=== PATIENT | female | born 1945 | race Caucasian/White ===

== ENCOUNTER → 2017-10-18 09:46 | Outpatient (CLI) | payer MEDICARE, SELFPAY ==
--- NOTE | 2017-10-18 09:51 | MM_ITS ---
MM Dig screening mamm BI w/CAD CAD Screening COMPARISON: Analog mammograms 06/27/2005 and digital mammograms 11/04/2015 INDICATION: There is a history of breast cancer in patient's 2 maternal great aunts. TECHNIQUE: Standard CC and MLO images were obtained. R2 CAD reviewed. FINDINGS: Moderate fiber glandular densities are seen in both breasts. Again noted are 3 benign-appearing nodular densities over upper outer quadrant right breast likely intramammary nodes. There are couple benign-appearing calcifications right breast. There is no suspicious lesion and there are no suspicious microcalcifications. IMPRESSION: Fibrofatty parenchyma with no suspicious lesion seen BI-RADS Category: 2 Benign Finding(s) RECOMMENDED FOLLOW-UP: 1YR - 1 YEAR FOLLOW-UP (A letter has been sent to the patient regarding results of the study.)
== END ==
PROVIDERS: Family Provider Internal Medicine Adolescent Medicine; PCP Internal Medicine Adolescent Medicine; Visit Provider Internal Medicine Adolescent Medicine
DX: Z12.31 Encounter for screening mammogram for malignant neoplasm of breast (principal)
CPT/HCPCS: 77067

== ENCOUNTER → 2018-01-08 10:24 | Outpatient (CLI) | payer MEDICARE, SELFPAY ==
[2018-01-08 11:01] LABS: Basophils # 0.1 K/mm3 (0-0.2); Eosinophils # 0.1 K/mm3 (0.0-0.4); Eosinophils % 1.8 % (0.1-12.0); Hematocrit 42.2 % (37.0-47.0); Lymphocytes # 1.2 K/mm3 (0.7-4.5); Lymphocytes % 15.8 K/mm3 (10-50); Mean Corpuscular HGB Conc 30.9 g/dL (31.8-35.4); Mean Corpuscular Hemoglobin 28.4 pg (27.0-31.2); Mean Platelet Volume 8.2 fl (7.4-10.4); Monocytes # 0.4 K/mm3 (0.1-1.0); Monocytes % 5.1 % (1.7-9.3); Neutrophils # 5.9 K/mm3 (1.8-7.8); Neutrophils % 76.1 % (37.0-80.0); Platelet Count 199 K/mm3 (142-424); Red Blood Count 4.59 M/mm3 (4.20-5.40); Red Cell Distribution Width 13.3 % (11.5-17.5); White Blood Count 7.7 K/mm3 (4.8-10.8)
[2018-01-08 11:40] LABS: Hemoglobin A1C 8.3 % (0.0-7.0)
[2018-01-08 11:57] LABS: Alanine Aminotransferase 28 U/L (12-78); Albumin/Globulin Ratio 1.3 (1.1-1.8); Alkaline Phosphatase 93 U/L (46-116); Aspartate Amino Transferase 17 U/L (15-37); Bilirubin,Total 0.5 mg/dL (0.2-1.0); Blood Urea Nitrogen 13 mg/dL (7-18); Calcium 9.3 mg/dL (8.5-10.1); Carbon Dioxide 30 mmol/L (21.0-32.0); Chloride 105 mmol/L (98-107); Chol/HDL Ratio 2.1 (1-3.5); Cholesterol 139 mg/dL (140-200); Creatinine,Serum 0.68 mg/dL (0.55-1.02); Estimated Glomerular Filt Rate 86 ml/min (>60); Free Thyroxine Index 5.8 ug/dL (5.93-13.13); GFR (African American) 104 ML/MIN (>60); Globulin 3.1 gm/dl (1.3-3.2); Glucose 184 mg/dL (74-106); HDL Cholesterol 67 mg/dL (29-89); LDL Cholesterol 61 mg/dL (0-130); Sodium 141 mmol/L (136-145); T4 (Thyroxine) 14.8 ug/dl (4.7-13.3); Thyroid Stimulating Hormone 0.09 uIU/ml (0.358-3.740); Total Protein,Serum 7.1 gm/dL (6.4-8.2); Triglycerides 53 mg/dL (30-200); Triiodothryronine (T3) Uptake 39 % (31-39); VLDL Cholesterol 11 mg/dL (0-40)
[2018-01-10 11:59] LABS: Vitamin B12 468 pg/mL (232-1245)
== END ==
PROVIDERS: Visit Provider Internal Medicine Adolescent Medicine
DX: E11.9 Type 2 diabetes mellitus without complications (principal); E03.9 Hypothyroidism, unspecified; G57.93 Unspecified mononeuropathy of bilateral lower limbs
CPT/HCPCS: 36415; 80053; 80061; 82607; 83036; 84436; 84443; 84479; 85025

== ENCOUNTER → 2018-07-21 14:56 | Outpatient (CLI) | payer MEDICARE, SELFPAY ==
--- NOTE | 2018-07-21 15:06 | XR_ITS ---
XR foot LT min 3V HISTORY: ITS.REASON: LEFT FOOT PAIN ORDERING PHYSICIAN: Eros Cohn MD PATIENT AGE: 72 years COMPARISON: None FINDINGS: No fracture or dislocation. No lytic or blastic change. There is normal mineralization.. The joint spaces are well-preserved. No significant degenerative/arthritic changes. No erosive changes evident. There is mild hypertrophic change along the dorsal distal aspect of the talus IMPRESSION: Negative, no acute finding
[2018-07-21 16:01] LABS: Basophils # 0.1 K/mm3 (0-0.2); Basophils % 1.1 % (0.1-2.0); Eosinophils # 0.1 K/mm3 (0.0-0.4); Eosinophils % 1.6 % (0.1-12.0); Hematocrit 45.1 % (37.0-47.0); Hemoglobin 14.1 g/dL (12.2-16.2); Lymphocytes # 1.5 K/mm3 (0.7-4.5); Lymphocytes % 20.7 % (10-50); Mean Corpuscular HGB Conc 31.3 g/dL (31.8-35.4); Mean Corpuscular Hemoglobin 29.5 pg (27.0-31.2); Monocytes # 0.4 K/mm3 (0.1-1.0); Monocytes % 5.9 % (1.7-9.3); Neutrophils # 5.1 K/mm3 (1.8-7.8); Neutrophils % 70.6 % (37.0-80.0); Platelet Count 199 K/mm3 (142-424); Red Cell Distribution Width 13.2 % (11.5-17.5); White Blood Count 7.2 K/mm3 (4.8-10.8)
[2018-07-21 16:14] LABS: Hemoglobin A1C 7.6 % (0.0-7.0)
[2018-07-21 16:55] LABS: Alanine Aminotransferase 49 U/L (12-78); Albumin Level 3.8 gm/dL (3.4-5.0); Albumin/Globulin Ratio 1.3 (1.1-1.8); Alkaline Phosphatase 92 U/L (46-116); Anion Gap 14.4 mEq/L (5-15); Aspartate Amino Transferase 37 U/L (15-37); Bilirubin,Total 0.6 mg/dL (0.2-1.0); Blood Urea Nitrogen 23 mg/dL (7-18); Carbon Dioxide 28 mmol/L (21.0-32.0); Chloride 104 mmol/L (98-107); Creatinine,Serum 0.81 mg/dL (0.55-1.02); Estimated Glomerular Filt Rate 70 ml/min (>60); Free Thyroxine Index 5.3 ug/dL (5.93-13.13); GFR (African American) 85 ML/MIN (>60); Glucose 157 mg/dL (74-106); Potassium 4.4 mmoL/L (3.5-5.1); Sodium 142 mmol/L (136-145); Thyroid Stimulating Hormone 0.28 uIU/ml (0.358-3.740); Total Protein,Serum 6.8 gm/dL (6.4-8.2); Triiodothryronine (T3) Uptake 38 % (31-39)
[2018-07-23 08:38] LABS: Vitamin B12 1136 pg/mL (232-1245); Vitamin D 25 Hydroxy 20.6 ng/mL (30.0-100.0)
== END ==
PROVIDERS: Visit Provider Internal Medicine Adolescent Medicine
DX: E11.9 Type 2 diabetes mellitus without complications (principal); M79.10 Myalgia, unspecified site; M79.672 Pain in left foot
CPT/HCPCS: 36415; 73630; 80053; 82607; 82652; 83036; 83735; 84436; 84443; 84479; 85025

== ENCOUNTER → 2020-01-07 14:52 | Outpatient (CLI) | payer MEDICARE, SELFPAY ==
[2020-01-07 15:10] LABS: Basophils # 0.1 K/mm3 (0-0.2); Basophils % 0.9 % (0.1-2.0); Eosinophils # 0.2 K/mm3 (0.0-0.4); Eosinophils % 1.8 % (0.1-12.0); Hematocrit 39.6 % (37.0-47.0); Lymphocytes # 2.4 K/mm3 (0.7-4.5); Lymphocytes % 23.3 % (10-50); Mean Corpuscular HGB Conc 32.9 g/dL (31.8-35.4); Mean Corpuscular Hemoglobin 31.1 pg (27.0-31.2); Mean Corpuscular Volume 94.7 fl (81-99); Mean Platelet Volume 7.8 fl (7.4-10.4); Monocytes # 0.4 K/mm3 (0.1-1.0); Monocytes % 3.4 % (1.7-9.3); Neutrophils # 7.3 K/mm3 (1.8-7.8); Neutrophils % 70.6 % (37.0-80.0); Platelet Count 540 K/mm3 (142-424); Red Blood Count 4.18 M/mm3 (4.20-5.40); Red Cell Distribution Width 13.3 % (11.5-17.5); White Blood Count 10.3 K/mm3 (4.8-10.8)
[2020-01-07 16:12] LABS: Chloride 101 mmol/L (98-107)
[2020-01-07 16:13] LABS: Potassium 4.4 mmoL/L (3.5-5.1); Sodium 139 mmol/L (136-145)
[2020-01-07 16:15] LABS: Alanine Aminotransferase 17 U/L (12-78); Albumin Level 3.5 g/dl (3.5-5.0); Albumin/Globulin Ratio 1.3 (1.1-1.8); Alkaline Phosphatase 69 U/L (38-126); Anion Gap 11.4 mEq/L (5-15); Aspartate Amino Transferase 25 U/L (14-36); Bilirubin,Total 0.4 mg/dl (0.2-1.3); Blood Urea Nitrogen 14 mg/dl (7-17); Carbon Dioxide 31 mmol/L (22.0-30.0); Estimated Glomerular Filt Rate 82 ml/min (>60); GFR (African American) 100 ML/MIN (>60); Globulin 2.8 g/dL (1.3-3.2); Total Protein,Serum 6.3 g/dl (6.3-8.2)
[2020-01-07 16:16] LABS: Calcium 8.8 mg/dl (8.4-10.2); Chol/HDL Ratio 2.5 (1-3.5); Cholesterol 111 mg/dl (140-200); Glucose 123 mg/dl (74-100); HDL Cholesterol 45 mg/dl (40-60); Triglycerides 112 mg/dl (30-150); VLDL Cholesterol 22 mg/dL (0-40)
[2020-01-07 16:28] LABS: Direct LDL Cholesterol 45.42 mg/dL (100-129)
[2020-01-07 17:28] LABS: Hemoglobin A1C 7.4 % (4.0-6.0)
== END ==
PROVIDERS: Visit Provider Internal Medicine Adolescent Medicine
DX: I10 Essential (primary) hypertension (principal); E78.5 Hyperlipidemia, unspecified; E11.9 Type 2 diabetes mellitus without complications; Z79.4 Long term (current) use of insulin
CPT/HCPCS: 36415; 80053; 80061; 83036; 84443; 85025

== ENCOUNTER → 2020-01-19 07:43 | Outpatient (CLI) | payer MEDICARE, SELFPAY ==
--- NOTE | 2020-01-19 07:50 | US_ITS ---
PROCEDURE: US ABDOMEN LIMITED Technique: Ultrasound evaluation of the right upper quadrant was performed with real-time static grayscale and color Doppler imaging technique. CLINICAL INDICATION: RUQ PAIN COMPARISON: ABD US ABD(COMPLETE-MULTI ORGANS from 11/05/2012 FINDINGS: PANCREAS: Unremarkable. No obvious mass or abnormal fluid collection. No ductal dilatation LIVER: No focal liver lesions demonstrated. Homogeneous echogenicity. No intrahepatic biliary ductal dilatation evident. There is appropriate direction of blood flow within a non dilated portal vein RIGHT KIDNEY: Unremarkable. Normal size and echogenicity. No hydronephrosis GALLBLADDER: No gallstones, gallbladder wall thickening(1.8 mm), pericholecystic fluid, or biliary dilatation. Minimal intraluminal sludge is seen. IMPRESSION: Unremarkable limited abdominal ultrasound as detailed above disc Dictated by: Minda Rincon 01/19/2020 08:35 Electronically signed by Minda Rincon in [place] 01/19/2020 08:35
== END ==
PROVIDERS: PCP Internal Medicine Adolescent Medicine; Visit Provider Internal Medicine Adolescent Medicine
DX: R10.11 Right upper quadrant pain (principal)
CPT/HCPCS: 76705

== ENCOUNTER → 2020-02-02 10:19 | Outpatient (CLI) | payer MEDICARE, SELFPAY ==
--- NOTE | 2020-02-02 10:25 | NM_ITS ---
PROCEDURE: NM HEPATOBILIARY W PHARM CLINICAL INDICATION: RUQ PAIN COMPARISON: US US ABDOMEN LIMITED from 01/19/2020 TECHNIQUE: DOSE: 8.08 mCi technetium Choletec and 1.5 mcg of CCK. No pain reported with CCK infusion FINDINGS: Homogeneous activity is present within the hepatic parenchyma. Activity is present in the gallbladder by 9 minutes. Activity is present in the small bowel by 40 minutes. The gallbladder ejection fraction is calculated to be 83 percent. CCK-The patient did not report pain or other symptoms during CCK infusion. IMPRESSION: Unremarkable hepatobiliary scan with normal gallbladder ejection fraction. Dictated b Antelmo Serrano MD 02/02/2020 13:13 Antelmo Serrano MD in [facility] 02/02/2020 13:13
--- NOTE | 2020-02-02 10:39 | HMH.ITSHM ---
Current Home Medications as stated by this patient Lizzie Peres or investment representative. []INSULIN LEVOTHYROXINE HCTZ VITAMINS
== END ==
PROVIDERS: PCP Internal Medicine Adolescent Medicine; Visit Provider Internal Medicine Adolescent Medicine
DX: R10.11 Right upper quadrant pain (principal)
CPT/HCPCS: 78227; A9537; J2805

== ENCOUNTER → 2020-12-15 09:14 | Outpatient (CLI) | payer MEDICARE, SELFPAY ==
[2020-12-15 09:58] LABS: Basophils # 0.1 K/mm3 (0-0.2); Basophils % 1.2 % (0.1-2.0); Eosinophils # 0.3 K/mm3 (0.0-0.4); Eosinophils % 3.3 % (0.1-12.0); Hematocrit 40.7 % (37.0-47.0); Hemoglobin 13.7 g/dL (12.2-16.2); Lymphocytes # 2.5 K/mm3 (0.7-4.5); Lymphocytes % 32.6 % (10-50); Mean Corpuscular HGB Conc 33.5 g/dL (31.8-35.4); Mean Corpuscular Volume 89.4 fl (81-99); Mean Platelet Volume 8.5 fl (7.4-10.4); Monocytes # 0.4 K/mm3 (0.1-1.0); Monocytes % 4.9 % (1.7-9.3); Neutrophils # 4.4 K/mm3 (1.8-7.8); Neutrophils % 57.9 % (37.0-80.0); Platelet Count 203 K/mm3 (142-424); Red Blood Count 4.55 M/mm3 (4.20-5.40); Red Cell Distribution Width 13.8 % (11.5-17.5); White Blood Count 7.6 K/mm3 (4.8-10.8)
[2020-12-15 10:17] LABS: Alanine Aminotransferase 20 U/L (12-78); Albumin/Globulin Ratio 1.5 (1.1-1.8); Alkaline Phosphatase 74 U/L (38-126); Anion Gap 10.2 mEq/L (5-15); Aspartate Amino Transferase 27 U/L (14-36); Bilirubin,Total 0.6 mg/dl (0.2-1.3); Blood Urea Nitrogen 21 mg/dl (7-17); Calcium 9.2 mg/dl (8.4-10.2); Carbon Dioxide 32 mmol/L (22.0-30.0); Chloride 101 mmol/L (98-107); Chol/HDL Ratio 2.3 (1-3.5); Cholesterol 158 mg/dl (140-200); Estimated Glomerular Filt Rate 82 ml/min (>60); GFR (African American) 99 ML/MIN (>60); Globulin 2.6 g/dL (1.3-3.2); Glucose 73 mg/dl (74-100); HDL Cholesterol 70 mg/dl (40-60); Potassium 4.2 mmoL/L (3.5-5.1); Sodium 139 mmol/L (136-145); Total Protein,Serum 6.6 g/dl (6.3-8.2); Triglycerides 72 mg/dl (30-150); VLDL Cholesterol 14 mg/dL (0-40)
[2020-12-15 10:28] LABS: Direct LDL Cholesterol 56.47 mg/dL (100-129)
[2020-12-15 10:34] LABS: Free Thyroxine Index 3.3 ug/dL (5.93-13.13); T4 (Thyroxine) 9.9 ug/dl (5.53-11.0); Triiodothryronine (T3) Uptake 33 % (23.5-40.5)
[2020-12-15 10:48] LABS: Thyroid Stimulating Hormone 2.95 uIU/mL (0.465-4.68)
[2020-12-15 11:43] LABS: Hemoglobin A1C 7.9 % (4.0-6.0)
== END ==
PROVIDERS: Visit Provider Internal Medicine Adolescent Medicine
DX: E11.9 Type 2 diabetes mellitus without complications (principal); E03.9 Hypothyroidism, unspecified; Z79.4 Long term (current) use of insulin
CPT/HCPCS: 36415; 80053; 80061; 83036; 84436; 84443; 84479; 85025

== ENCOUNTER → 2020-12-27 09:40 | Outpatient (CLI) | payer MEDICARE, SELFPAY ==
--- NOTE | 2020-12-27 09:44 | MR_ITS ---
PROCEDURE INFORMATION: Exam: MR Left Upper Extremity Joint Without Contrast; Shoulder Exam date and time: 12/27/2020 9:44 AM Age: 75 years old Clinical indication: Pain; Shoulder; Left; Additional info: Rotator cuff syndrome. Shoulder pain [id number]. Lifted object and has had pain since. Limited rom. Prior MR 10-12-14 TECHNIQUE: Imaging protocol: MR of the Left upper extremity without contrast. Exam focused on the shoulder. COMPARISON: UEAJW/OLT MRI-UP EXT ANY JNT W/O-LT 10/12/2014 11:38 AM (report not available) FINDINGS: Bones and cartilage: Benign subchondral cysts involve the humeral head. The undersurface of the acromion has a normal curvature, consistent with a type II acromion. There is no acute fracture or dislocation. No aggressive bone lesions are present. Joint spaces: There is mild primary osteoarthritis of the acromioclavicular joint. Glenoid labrum: Unremarkable. No evidence of tear. Supraspinatus tendon: Intermediate-grade partial-thickness tearing involves both the articular and bursal surfaces of the distal supraspinatus tendon resulting in approximately 50% loss of tendon diameter involving approximately 8 mm of the tendon (series 9/images 9-10). Infraspinatus tendon: Mild tendinosis involves the infraspinatus tendon. Subscapularis tendon: Mild tendinosis involves the subscapularis tendon. Teres minor tendon: No tear or significant tendinosis involves the teres minor tendon. Tendon of biceps brachii: Moderate tendinosis involves the intra-articular portion of the long head of the biceps tendon. Glenohumeral ligaments: Unremarkable. Muscles: The rotator cuff musculature demonstrates no significant edema or atrophy. Soft tissues: Unremarkable. IMPRESSION: 1. Intermediate-grade partial-thickness tearing involving approximately 8 mm of the distal supraspinatus tendon articular and bursal surfaces that results in approximately 50% loss of tendon diameter. 2. Moderate tendinosis of the long head of the biceps tendon. 3. 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
== END ==
PROVIDERS: PCP Internal Medicine Adolescent Medicine; Visit Provider Internal Medicine Adolescent Medicine
DX: M75.102 Unspecified rotator cuff tear or rupture of left shoulder, not specified as traumatic (principal)
CPT/HCPCS: 73221

== ENCOUNTER → 2021-01-03 14:22 | Outpatient (CLI) | payer MEDICARE, SELFPAY | PROVIDERS: Visit Provider Surgery | DX: Z01.812 Encounter for preprocedural laboratory examination (principal); Z11.52 Encounter for screening for COVID-19; Z13.810 Encounter for screening for upper gastrointestinal disorder; R10.10 Upper abdominal pain, unspecified | CPT/HCPCS: U0003 ==

== ENCOUNTER 2021-01-04 07:19 | Day surgery (SDC) | payer MEDICARE, SELFPAY ==
[2021-01-02 09:43] VITALS: BMI 29.2
[2021-01-04] VITALS (8 sets, daily range): BP systolic 140–175; BP diastolic 55–92; PULSE 74–97; RESP 16–18; TEMP 36.2–36.4; O2SAT 96–99
--- NOTE | 2021-01-04 08:33 | P.PN_ITS ---
[facility] Anesthesia Checklist - Patient Identification Patient Identification: Arm Band - Structural Data Admitted From: Home Planned Operative Procedure/s: egd Consent for Planned Operative Procedure(s) Verified: Yes Verified Documents: Surgical Consent, History and Physical - NPO Status Verified Time NPO: 00:00 - Additional verifications Anesthesia Reactions: No - Airway Assessment C-Spine Mobility Assessed: Yes (mp2) TMJ Mobility Assessed: Yes Dentition: Good Dentition - Neurological Assessment Level of Consciousness: Awake, Alert - Anesthesia Plan Anesthesia Risk discussed: Yes Anesthesia Plan: Verified ASA Class: III Anesthesia Type: MAC [facility] History I have reviewed the patient's past medical history: Yes Medical History: Reports:: Cerebrovascular Accident (2013), Diabetes Mellitus Type 2, Hypertension Denies:: Cancer, Diabetes Mellitus Type 1, Internal Pacemaker, Lung Disease, MRSA, Seizures *Have you ever received a pneumonia vaccine?: No *Have you received a flu vaccine this season?: No Other Medical History: Reports: Thyroid Disease Anesthesia experience/problems:: nac Laterality Cases: Right: Arthroscopy Knee Other Surgeries: Yes: Colonoscopy, Hernia Repair, Other. No: Pacemaker Amputation: No - *Social History Smoking Status: Never smoker Alcohol Intake: never Alcohol Intake Frequency:: other Substance Use Type: denies use *Occupational Status:: retired Housing: house *Travel in the last 8 weeks: None Family Hx:: Unable to obtain
[2021-01-04 08:50] LABS: POC Glucose,Bedside 94 (70-110)
--- NOTE | 2021-01-04 08:57 | P.PCN_ITS ---
- Procedure: Date: 01/04/21 Patient Date of :: 1945 Procedure Performed:: Esophagogastroduodenoscopy with biopsies and dilatation Indications:: Patient is a 75-year-old diabetic female referred by Dr. Eros Cohn for upper endoscopy. She has a prior history of stroke. Patient states that her symptoms began about 2 years ago. She had previously been diagnosed with acid reflux. She states that 2 years ago she had purchased some items at [employer] in cluding a large flower pot and she, when lifting, felt a sharp pain in the left upper quadrant radiating around her left back and into her left shoulder. She subsequently has had ongoing occasional symptoms of left upper quadrant pain. She states that this occurs essentially with anything she eats. She also states that when she bends over she feels the need to vomit. She also has significant belching. She watches her diet significantly and states that she eats a lot of yogurt, raw vegetables, and refrains from eating meat and spicy foods. She does take fiber supplementation and organic vitamins. She has some associated indigestion type symptoms. She underwent gallbladder work-up last summer including ultrasound and HIDA scan which were unremarkable. She did undergo colonoscopy approximately [address] Yan. Performing Provider:: Dariusz Powell MD Referring Provider:: Eros Cohn MD Sedation:: MAC sedation Procedure:: Patient was positioned in lateral decubitus position. Adequate intravenous sedation was achieved with anesthesia titration of propofol. Olympus endoscope was inserted via the oropharynx and advanced into the esophagus. Overall esophagus appeared unremarkable. However, the gastroesophageal junction, which was encountered actually at approximately 30 cm from the incisors, there was noted to be evidence of possible Schatzki's ring in focal reflux esophagitis. Stomach was cannulated and insufflated. She had a rather large hiatal hernia. The main body of the stomach was actually cannulated at approximately 40 cm from the incisors. Overall gastric mucosa appeared relatively unremarkable. Gastric mucosal biopsies obtained for CLOtest for H. pylori. Pylorus was traversed. Duodenum appeared unremarkable. Endoscope was withdrawn into the distal esophagus. Several biopsies were obtained. The area of esophagitis and Schatzk i's ring was dilated sequentially using the pneumatic dilator from 18, 19, 20 mm luminal diameter. Stomach was desufflated and the endoscope was then withdrawn. Findings:: Very large hiatal hernia Focal gastroesophageal esophagitis and Schatzki's ring Recommendations:: Follow-up on H. pylori status and biopsies. May be require referral for co nsideration of hiatal hernia repair if symptoms persist Complications:: None immediately apparent Estimated blood obtained (mL): 2
[2021-01-04 10:01] LABS: POC Glucose,Bedside 106 (70-110)
== END 2021-01-04 10:10 | disposition home or self-care (01) ==
LOC: OUTP 07:21
PROVIDERS: PCP Internal Medicine Adolescent Medicine; Visit Provider Surgery
PROC: 0DJ08ZZ Inspection of Upper Intestinal Tract, Via Natural or Artificial Opening Endoscopic (ICD-10-PCS; CPT 43235; principal; 2021-01-04 08:30)
DX: K44.9 Diaphragmatic hernia without obstruction or gangrene (principal); K22.2 Esophageal obstruction; K20.80 Other esophagitis without bleeding; E11.9 Type 2 diabetes mellitus without complications; I10 Essential (primary) hypertension; Z86.73 Personal history of transient ischemic attack (TIA), and cerebral infarction without residual deficits; E07.9 Disorder of thyroid, unspecified; Z88.0 Allergy status to penicillin; Z88.8 Allergy status to other drugs, medicaments and biological substances; Z79.4 Long term (current) use of insulin; Z79.899 Other long term (current) drug therapy
CPT/HCPCS: 43239; 43249; 82962; 87339; 88305; 88312; C1726

== ENCOUNTER → 2021-01-27 11:19 | Outpatient (CLI) | payer MEDICARE, SELFPAY ==
--- NOTE | 2021-01-27 11:28 | XR_ITS ---
PROCEDURE: XR SHOULDER LT MIN 2V CLINICAL INDICATION: LT shoulder pain COMPARISON: MR MR SHOULDER LT WO CON from 12/27/2020 FINDINGS: No fracture or dislocation. No lytic or blastic change. There is normal mineralization. There are mild osteoarthritic changes of the glenohumeral joint and there is mild subacromial stenosis Other findings:The humeral head is slightly high-riding. IMPRESSION: Mild osteoarthritis of the glenohumeral joint with mild subacromial stenosis Dictated by: Antelmo Serrano MD 01/27/2021 11:49 Antelmo Serrano MD in [facility] 01/27/2021 11:49
== END ==
PROVIDERS: PCP Internal Medicine Adolescent Medicine; Visit Provider Orthopaedic Surgery
DX: M25.512 Pain in left shoulder (principal)
CPT/HCPCS: 73030

== ENCOUNTER 2021-03-01 08:00 | Outpatient (RCR) | payer MEDICARE, SELFPAY ==
--- NOTE | 2021-01-30 09:13 | HMH.OTOPEV ---
OT Inpatient Evaluation Rehab OT Outpatient Eval Start: 01/30/21 08:46 Freq: Status: Active Protocol: Document 01/30/21 08:47 CHANDANARICARDO (Rec: 01/30/21 09:09 YAMILANARESH [id number]) Electronically Signed By Caitlin Dietrich, OT 01/30/21 08:47 Outpatient Therapy Subjective History Subjective History 75 year old female referred to skilled OP OT services for left shoulder pain. X-ray on : Mild osteoarthritis of the glenohumeral joint with mild subacromial stenosis. MRI on 01/30/21. 1. Intermediate- grade partial-thickness tearing involving approximately 8 mm of the distal supraspinatus tendon articular and bursal surfaces that results in approximately 50% loss of tendon diameter. 2. Moderate tendinosis of the long head of the biceps tendon . 3. 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 She states about six months ago she picked up a five gallon bucket of kerosene and felt something in her left shoulder pull . She states it continued to bother her so she followed up with her primary care physician, Dr Cohn who ordered an MRI and told her to follow up with orthopaedics. She states she has no pain at rest but with certain movements, over head reaching, lifting and gripping she rates her pain a 5 out of 10. She states she has had an intra-articular steroid injection in 2015 by a physician in [place] and had received some relief from it. She states occasional neck pain. She states she has some tinging in her fingers that comes and goes. She states that she has had a stroke in t
== END 2021-03-01 08:05 | disposition home or self-care (01) ==
LOC: OT 08:00
PROVIDERS: PCP Internal Medicine Adolescent Medicine; Visit Provider Orthopaedic Surgery
DX: M25.512 Pain in left shoulder (principal)
CPT/HCPCS: 97014; 97035; 97110; 97140; 97164; 97165; 97530; G0283

== ENCOUNTER → 2021-07-26 08:22 | Outpatient (CLI) | payer MEDICARE, SELFPAY ==
--- NOTE | 2021-07-26 08:28 | XR_ITS ---
FINAL REPORT TECHNIQUE: Bone densitometry calculations of the lumbar spine and left hip were obtained. CLINICAL HISTORY: . FINDINGS: Using L1-4, the bone mineral density of the spine is 1.106 g/cm2, corresponding to T-score of 0.5. Using the left hip, the bone mineral density of the femoral neck is 0.724 g/cm2, corresponding to a T-score of -1.8. NOTE: T-score: Standard deviation compared with peak bone mass of young adult mean. *Following the recommendations of the International Society of Bone Densitometry, classification of hip BMD is based on the lower of two T-scores; total hip or femoral neck. IMPRESSION: Normal bone mineralization of the lumbar spine. This may be falsely elevated secondary to degenerative changes. Diminished bone mineralization of the left hip consistent with osteopenia. FRAX major osteoporotic fracture risk 11 %. Reviewed, Interpreted and Dictated by Dariusz Ibarra III, MD Transcribed by Michelle Chandler Authenticated by Dariusz Ibarra III, MD on 07/26/2021 10:30:54 AM [facility]
--- NOTE | 2021-07-26 08:28 | MM_ITS ---
PROCEDURE INFORMATION: Exam: MG Bilateral Screening 3D Mammography Exam date and time: 07/26/2021 8:28 AM Age: 75 years old Clinical indication: Screening mammogram TECHNIQUE: Imaging protocol: Bilateral Screening tomosynthesis and 2D mammography including computer-aided detection (CAD) when performed. COMPARISON: 1. MG SCBI MM Dig screening mamm BI w/CAD 10/18/2017 10:04 AM 2. MG DMSB DIG MAMM-SCREEN ALVARO 11/04/2015 4:34 PM FINDINGS: MAMMOGRAPHY: Breast composition: The breast tissue is heterogeneously dense, which may obscure small masses. Mass: None. Architectural distortion: No new or suspicious architectural distortion. Calcifications: No new or suspicious calcifications are present Asymmetric density: No new or suspicious asymmetric density is present Skin thickening: None. Axillary adenopathy: None. IMPRESSION: No mammographic evidence of malignancy. Recommend annual screening mammography unless otherwise clinically indicated. ASSESSMENT: BI-RADS category 1: Negative
== END ==
PROVIDERS: PCP Internal Medicine Adolescent Medicine; Visit Provider Internal Medicine Adolescent Medicine
DX: Z12.31 Encounter for screening mammogram for malignant neoplasm of breast (principal); Z13.820 Encounter for screening for osteoporosis; Z78.0 Asymptomatic menopausal state
CPT/HCPCS: 77063; 77067; 77080

== ENCOUNTER 2021-09-19 16:24 | Emergency (ER) | payer MEDICARE, SELFPAY ==
[2021-09-19 16:49] VITALS: PULSE 95; RESP 16; TEMP 36.6; O2SAT 99; BMI 32.5
--- NOTE | 2021-09-19 17:39 | XR_ITS ---
PROCEDURE INFORMATION: Exam: XR Left Elbow Exam date and time: 09/19/2021 5:59 PM Age: 75 years old Clinical indication: Pain; Elbow; Left; Additional info: Left elbow pain after fall on Saturday night , bruising and swelling noted to elbow , best images possible TECHNIQUE: Imaging protocol: XR Left elbow. Views: 3 or more views. COMPARISON: UEAJW/OLT MRI-UP EXT ANY JNT W/O-LT 10/12/2014 11:38 AM FINDINGS: Bones/joints: Displaced fracture of the olecranon process with 1.2 cm displacement of fracture fragments. No other acutely displaced fractures are appreciated. No dislocation. Small to moderate elbow joint effusion. Soft tissues: There is soft tissue swelling. IMPRESSION: Displaced fracture of the olecranon process.
[2021-09-19 17:55] VITALS: BP 146/92; PULSE 95; RESP 16; TEMP 36.6; O2SAT 99; BMI 32.3
--- NOTE | 2021-09-19 18:40 | HMH.EDUTC ---
[facility] Disposition Clinical Impression: Elbow fracture, left Qualifiers: Encounter type: initial encounter Fracture type: closed Qualified Code(s): S42.402A - Unspecified fracture of lower end of left humerus, initial encounter for closed fracture Disposition: Home, Self-Care Condition on Discharge: Good Instructions: Acetaminophen (Alternative Therapy), How To Perform RICE (Rest, Ice, Compress, Elevate), Ibuprofen Additional Instructions: *RICE, Rest the extremity, Ice 15-20 minutes 3-4 times daily, Compress- wear the sundeep wrap as discussed as much as possible to help reduce swelling and pain, Elevate the extremity when at rest *Sundeep wrap/long arm splint is for support and help control swelling, *Elevate when resting and keep elevated to help with swelling and bruising *Ibuprofen 600 every 6-8 hours as needed for pain an inflammation. If need something more can take Tylenol in between doses of Ibuprofen to help Immediately follow up with your family doctor for new or worsening of symptoms, or no noticeable improvement over the next 3-5 days NO FOOD OR DRINK AFTER MIDNIGHT TONIGHT 09/19/21 THE ORTHOPEDIC OFFICE WILL CONTACT YOU WITH TIME IN THE MORNING IF YOU HAVE NOT HEARD FROM THEM THEN YOU MAY CALL THEM Referrals: Eros Cohn MD [Primary Care Provider] - As needed Anand Pizarro JR, MD [Physician] - 09/20/21 (Nothing to eat or drink after midnight, the office will call you with what time to be here if you have not heard from them call ) Time of Disposition: 18:51 Medical Decision Making - Charles Inquiry Pt receiving controlled substance: No Charles was queried for this patient: No Vital Signs: 09/19/21 16:49 09/19/21 17:55 Temperature 97.9 F 97.9 F Temperature Source Oral Oral Pulse Rate [Left Radial] 95 H 95 H Respiratory Rate 16 16 Blood Pressure [Right Arm] 146/92 H Blood Pressure Mean [Right Arm] 110 02 Sat by Pulse Oximetry 99 99 Oxygen Delivery Method Nasal Cannula - Radiology Data #1 Image(s): Elbow Image Reviewed: Yes I have reviewed radiologist's interpretation IMPRESSION: Displaced fracture of the olecranon process. - Physician Consults Physician Consulted: Dr Pizarro Time: 18:25 Reason -: Orthopedic Eval/Care Comment/Response: spoke with Dr Pizarro and he viewed xray and agreed Advised to place her in long arm splint, NPO after Midnight and he would contact Dr Dobbs and possibly put her on in the morning the office will call her with a time [facility] HPI - General Stated complaint: 09/15@1830@home injured L elbow Time Seen by Provider: 09/19/21 18:00 Mode of Arrival: Ambulatory Source of Information: Patient Limitations: No Limitations Description of Symptoms (Recalled from Triage Doc. by RN): pt c/o L elbow pain from a fall four days ago. HEENT Symptoms (Recalled from RN notes): No Resp Symptoms (Recalled from RN notes): No Skin Symptoms (Recalled from RN notes): No MS Symptoms (Recalled from RN notes): Yes Functional Status (Recalled from RN notes): wnl - History of Present Illness Provider Complaint: Patient states that she fell in her driveway on Saturday States that she has been having pain, swelling and bruising ever since in her left arm States that pain is worse in her elbow area and hurts when she touches it Statse that tonight she was still hurting and bruising was worse so she came in - Related Data Home Medications Medication Instructions Recorded Confirmed insulin aspart U-100 100 unit/mL 3 unit SUB-Q BID 01/07/18 04/21/21 (3 mL) subcutaneous pen insulin detemir U-100 100 unit/mL 5 unit SUB-Q QHS 01/07/18 04/21/21 (3 mL) subcutaneous pen hydrochlorothiazide 25 mg tablet 25 mg PO DAILY tab 12/19/20 04/21/21 levothyroxine 125 mcg tablet 125 mcg PO DAILY tab 12/19/20 04/21/21 losartan 100 mg tablet 100 mg PO DAILY tab 12/19/20 04/21/21 Previous Rx's Medication Instructions Recorded esomeprazole magnesium 40 mg 40 mg PO DAILY #30 cap 01/27/21 capsule,d
[2021-09-19 19:31] VITALS: BP 146/92; PULSE 95; RESP 16; TEMP 36.6
== END 2021-09-19 19:32 | disposition home or self-care (01) ==
LOC: ER 16:51 → UTC 16:58
PROVIDERS: Emergency Provider Nurse Practitioner; PCP Internal Medicine Adolescent Medicine
DX: S52.022A Displaced fracture of olecranon process without intraarticular extension of left ulna, initial encounter for closed fracture (principal); W01.0XXA Fall on same level from slipping, tripping and stumbling without subsequent striking against object, initial encounter; Y92.014 Private driveway to single-family (private) house as the place of occurrence of the external cause; E11.9 Type 2 diabetes mellitus without complications; I10 Essential (primary) hypertension; Z88.0 Allergy status to penicillin
CPT/HCPCS: 29105; 73080; 99212; G0463

== ENCOUNTER → 2021-09-20 10:23 | Outpatient (CLI) | payer MEDICARE, SELFPAY ==
--- NOTE | 2021-09-20 10:31 | CT_ITS ---
FINAL REPORT CLINICAL HISTORY: left elbow fracture pt unable to place arm behind her or lay prone with arm out in front of her, best images possible prior xrays of left elbow on 09/19/21 COMPARISON: Axial images through the left elbow was obtained by computed tomography. Sagittal coronal reformatted images were obtained and reviewed. Three-D reformatted images were also obtained and reviewed. This study was performed with techniques to keep radiation doses as low as reasonably achievable (ALARA). Individualized dose reduction techniques using automated exposure control or adjustment of mA and/or kV according to the patient's size were employed. FINDINGS: There is a comminuted fracture of the olecranon. Fracture lines extend to the joint. There is up to 4 mm of distraction of the fracture fragments. No other fracture or dislocation is identified. There is a small joint effusion or hemarthrosis. IMPRESSION: Comminuted fracture of the olecranon. Reviewed, Interpreted and Dictated by Dariusz Ibarra III, MD Transcribed by Daniela Soto Authenticated by Dariusz Ibarra III, MD on 09/20/2021 01:20:53 PM [facility]
--- NOTE | 2021-09-20 10:32 | XR_ITS ---
FINAL REPORT CLINICAL HISTORY: hypertension FINDINGS: Two views of the chest were obtained. The heart size and pulmonary vascularity are within normal limits. The mediastinum is normal. There is mild atelectasis or scarring in the right lung base. There is no pneumothorax. The bony thorax is intact. There is a large hiatal hernia. IMPRESSION: No active cardiopulmonary disease. Reviewed, Interpreted and Dictated by Dariusz Ibarra III, MD Transcribed by Michelle Chandler Authenticated by Dariusz Ibarra III, MD on 09/20/2021 11:27:56 AM [facility]
[2021-09-20 11:51] LABS: Basophils # 0.1 K/mm3 (0-0.2); Basophils % 1.2 % (0.1-2.0); Eosinophils # 0.1 K/mm3 (0.0-0.4); Eosinophils % 1.6 % (0.1-12.0); Hematocrit 38.5 % (37.0-47.0); Hemoglobin 12.7 g/dL (12.2-16.2); Lymphocytes # 1.7 K/mm3 (0.7-4.5); Lymphocytes % 21.3 % (10-50); Mean Corpuscular HGB Conc 33.1 g/dL (31.8-35.4); Mean Corpuscular Hemoglobin 30.4 pg (27.0-31.2); Mean Platelet Volume 9.7 fl (7.4-10.4); Monocytes # 0.4 K/mm3 (0.1-1.0); Monocytes % 5.1 % (1.7-9.3); Neutrophils # 5.6 K/mm3 (1.8-7.8); Neutrophils % 70.7 % (37.0-80.0); Platelet Count 210 K/mm3 (142-424); Red Blood Count 4.18 M/mm3 (4.20-5.40)
[2021-09-20 12:31] LABS: Hemoglobin A1C 7.9 % (4.0-6.0)
[2021-09-20 13:12] LABS: Alanine Aminotransferase 21 U/L (12-78); Albumin Level 4.1 g/dl (3.5-5.0); Albumin/Globulin Ratio 1.7 (1.1-1.8); Alkaline Phosphatase 84 U/L (38-126); Aspartate Amino Transferase 28 U/L (14-36); Bilirubin,Total 0.7 mg/dl (0.2-1.3); Blood Urea Nitrogen 18 mg/dl (7-17); Carbon Dioxide 30 mmol/L (22.0-30.0); Chloride 101 mmol/L (98-107); Estimated Glomerular Filt Rate 98 ml/min (>60); GFR (African American) 119 ML/MIN (>60); Globulin 2.4 g/dL (1.3-3.2); Glucose 125 mg/dl (74-100); Sodium 137 mmol/L (136-145); Total Protein,Serum 6.5 g/dl (6.3-8.2)
== END ==
PROVIDERS: PCP Internal Medicine Adolescent Medicine; Visit Provider Physician Assistant Surgical
DX: S42.402A Unspecified fracture of lower end of left humerus, initial encounter for closed fracture (principal); E11.9 Type 2 diabetes mellitus without complications; Z79.4 Long term (current) use of insulin
CPT/HCPCS: 36415; 71046; 73200; 80053; 83036; 85025

== ENCOUNTER 2021-09-24 13:02 | Emergency (ER) | payer MEDICARE, SELFPAY ==
[2021-09-24 13:30] VITALS: RESP 18; O2SAT 98; BMI 38.2
[2021-09-24 13:34] VITALS: BP 0/0; PULSE 0; RESP 0; TEMP -17.7; TEMP 0
== END 2021-09-24 13:36 | disposition left against medical advice (07) ==
LOC: UTC 13:04
PROVIDERS: Emergency Provider Nurse Practitioner Family; PCP Internal Medicine Adolescent Medicine
DX: Z03.89 Encounter for observation for other suspected diseases and conditions ruled out (principal); Z53.21 Procedure and treatment not carried out due to patient leaving prior to being seen by health care provider; Z20.822 Contact with and (suspected) exposure to COVID-19; Z79.4 Long term (current) use of insulin; E66.9 Obesity, unspecified; Z79.899 Other long term (current) drug therapy; Z88.8 Allergy status to other drugs, medicaments and biological substances
CPT/HCPCS: C9803; U0003; U0005

== ENCOUNTER 2021-09-26 08:50 | Day surgery (SDC) | payer MEDICARE, SELFPAY ==
[2021-09-25 11:16] VITALS: BMI 32.5
[2021-09-26] VITALS (11 sets, daily range): BP systolic 135–169; BP diastolic 80–91; PULSE 60–93; RESP 16–18; TEMP 36.2–43; O2SAT 94–99
--- NOTE | 2021-09-26 11:54 | SUR.PREOP ---
1130- assisted patient to BR patient urinated. Assisted back to stretcher made comfortable with extra pillow under left elbow and rails up. Family at BS. Denies any needs
--- NOTE | 2021-09-26 12:06 | HMH.ORTHHP ---
*Admission Date: 09/26/21 *Reason for consult:: Left olecranon fracture *History of present illness: 75-year-old female fell last week, complained of left elbow pain. She was seen in the emergency department where radiographs demonstrated a left olecranon fracture. She was placed in a long-arm splint, seen in clinic by Dr. Cabrera and Dilia Santana PA-C. Her skin was examined and her long-arm splint was replaced. I had a discussion with her regarding further management. Given her overall functional status and significant displacement of the intra-articular fracture, open reduction internal fixation was recommended. [facility] History Medical History: Reports:: Cerebrovascular Accident, Diabetes Mellitus Type 2, Hypertension Denies:: Cancer, Diabetes Mellitus Type 1, Internal Pacemaker, Lung Disease, MRSA, Seizures *Have you ever received a pneumonia vaccine?: Yes *Have you received a flu vaccine this season?: Yes Other Medical History: Reports: Thyroid Disease. Denies: Blood Transfusion Reaction Laterality Cases: Right: Arthroscopy Knee, Bilateral: Cataract Other Surgeries: Yes: Colonoscopy, EGD, Hernia Repair, Other. No: Pacemaker Amputation: No Fractures: No - *Social History Last grade of school completed: High school graduate Smoking Status: Never smoker Alcohol Intake: never Alcohol Intake Frequency:: other Substance Use Type: denies use *Occupational Status:: retired Housing: house *Travel in the last 8 weeks: None Family Hx:: Cancer, Coronary Artery Disease, Diabetes, Heart Attack, Hypertension, Stroke, Thyroid Disorder Review of Systems - Constitutional Denies body ache(s), Denies chills - *Cardiovascular Denies chest pain, Denies chest pain with activity - *Respiratory Denies shortness of breath, Denies shortness of breath with activity - *Gastrointestinal Denies abdominal pain, Denies change in stools - *Genitourinary Denies difficulty urinating - *Musculoskeletal Reports joint pain - *Neurologic Denies abnormal walking, Denies abnormal movements Meds Home Medications Medication Instructions Recorded Confirmed Type insulin aspart U-100 100 unit/mL 10 unit SUB-Q BID 01/07/18 09/26/21 History (3 mL) subcutaneous pen insulin detemir U-100 100 unit/mL 20 unit SUB-Q QHS 01/07/18 09/26/21 History (3 mL) subcutaneous pen hydrochlorothiazide 25 mg tablet 25 mg PO DAILY tab 12/19/20 09/26/21 History levothyroxine 125 mcg tablet 125 mcg PO DAILY tab 12/19/20 09/26/21 History losartan 100 mg tablet 100 mg PO DAILY tab 12/19/20 09/26/21 History Esomeprazole Magnesium 40 mg PO NEEDED PRN 09/25/21 09/26/21 History Allergies Allergy/AdvReac Type Severity Reaction Status Date / Time lisinopril [LISINOPRIL] Allergy Unknown VISION Verified 09/20/21 09:27 DISTURBANCES-DIZZY Penicillins [PENICILLINS] Allergy Unknown REACTED ON Verified 09/20/21 09:27 ALLERGY TESTING Exam Vital signs and Labs for Last 24 Hours: Temp Pulse Resp BP Pulse Ox 97.8 F 93 H 16 140/86 99 09/26/21 09:15 09/26/21 09:15 09/26/21 09:15 09/26/21 09:15 09/26/21 09:15 I & O for Last 24 hours: Intake & Output 09/23/21 09/24/21 09/25/21 09/26/21 23:59 23:59 23:59 23:59 Weight 190 lb - Constitutional no acute distress - *Routine HEENT Exam Head: Present: normocephalic Eye: Present: EOMI, PERRL ENT: Present: mucous membranes moist - *Routine Neck Exam Present: supple. Absent: lymphadenopathy - *Routine Respiratory Exam Present: CTA bilaterally - *Routine Cardiovascular Exam Present: RRR - *Routine Abdominal Exam Present: soft, normoactive bowel sounds. Absent: tenderness - *Routine Rectal Exam Rectal:: deferred - *Routine Genitalia Exam Genitalia:: deferred - *Routine Extremities Exam Absent: cyanosis, clubbing, edema - *Routine Skin Exam Present: warm. Absent: rash - *Routine Neurological Exam Present: alert, oriented X3 - Detailed Upper Ext
--- NOTE | 2021-09-26 13:53 | HMH.ANESCL ---
[facility] Anesthesia Checklist - Patient Identification Patient Identification: Arm Band - Structural Data Admitted From: Home Planned Operative Procedure/s: ORIF Left Elbow Consent for Planned Operative Procedure(s) Verified: Yes Verified Documents: Surgical Consent, History and Physical - NPO Status Verified Time NPO: 00:00 - Additional verifications Anesthesia Reactions: No Hx Blood Transfusions: No Blood Transfusion Reaction: No - Airway Assessment C-Spine Mobility Assessed: Yes (mp2) TMJ Mobility Assessed: Yes Dentition: Good Dentition - Neurological Assessment Level of Consciousness: Awake, Alert - Anesthesia Plan Anesthesia Risk discussed: Yes Anesthesia Plan: Verified ASA Class: III Anesthesia Type: General w/block (Left Supraclavicular Nerve Block. Risk/Benefits explained. Pt verbalized understanding) [facility] History I have reviewed the patient's past medical history: Yes Medical History: Reports:: Cerebrovascular Accident, Diabetes Mellitus Type 2, Hypertension Denies:: Cancer, Diabetes Mellitus Type 1, Internal Pacemaker, Lung Disease, MRSA, Seizures *Have you ever received a pneumonia vaccine?: Yes *Have you received a flu vaccine this season?: Yes Other Medical History: Reports: Thyroid Disease. Denies: Blood Transfusion Reaction Anesthesia experience/problems:: nac Laterality Cases: Right: Arthroscopy Knee, Bilateral: Cataract Other Surgeries: Yes: Colonoscopy, EGD, Hernia Repair, Other. No: Pacemaker Amputation: No Fractures: No - *Social History Last grade of school completed: High school graduate Smoking Status: Never smoker Alcohol Intake: never Alcohol Intake Frequency:: other Substance Use Type: denies use *Occupational Status:: retired Housing: house *Travel in the last 8 weeks: None Family Hx:: Cancer, Coronary Artery Disease, Diabetes, Heart Attack, Hypertension, Stroke, Thyroid Disorder
--- NOTE | 2021-09-26 14:37 | XR_ITS ---
FINAL REPORT CLINICAL HISTORY: ORIF, fx 09/15/21 FINDINGS: FLUORO TIME PROCEDURE: Fluoroscopy in the operating room. FINDINGS: Fluoroscopy time was provided by the radiology department for the clinical service. 4 films were obtained. Fluoroscopy exposure time: 1:14 minute IMPRESSION: See above Reviewed, Interpreted and Dictated by Dariusz Ibarra III, MD Transcribed by Michelle Chandler Authenticated by Dariuzs Ibarra III, MD on 09/26/2021 04:08:12 PM [facility]
--- NOTE | 2021-09-26 15:08 | HMH.ANESI ---
[facility] Anesthesia Record Part I Intake, IV Amount: 1,200 Estimated blood loss (mL): 10 Urine output (mL): 0 Blood Pressure: 135/80 SaO2: 94 Pulse Rate: 68 Respiratory Rate: 16 Temperature: 97.8 F Patient is:: Drowsy, Stable Stable to PACU at:: 15:05
--- NOTE | 2021-09-26 15:15 | HMH.OPNOTE ---
Date of procedure: 09/26/21 Pre-op Diagnosis:: Left closed olecranon fracture Post-op Diagnosis:: same Procedure performed:: 77997: open reduction internal fixation left olecranon fracture Surgeon:: Anand Pizarro JR, MD CINDER BLOCK MASON:: Naman Gibbs Anesthesia: GETA, regional Estimated blood loss (mL): 5 Operative findings:: Appropriate fracture reduction, safe extraarticular hardware placement. Operative note:: 75 year old right hand dominant female who sustained left closed olecranon fracture as a result of a fall on 09/15/21 carrying some boxes in her driveway. She denied any distal numbness/tingling or any other injuries. She presented to [facility] ER on 09/19/2021. Evaluation in the ER revealed a displaced left olecranon process fracture. She was subsequently evaluated in clinic. She lives alone in her own home and is independent for all activities of daily living. She is a non-smoker and is retired. Her past medical history is significant for CVA in 2013 resulting in minimal residual left-sided weakness, diabetes type 2, hypertension, hypothyroidism, and CVA. View left elbow radiographs personally reviewed and interpreted by myself demonstrated intra-articular left olecranon fracture. I had a discussion with her regarding further management. Given her overall high functional status and unstable intra-articular nature of the fracture I recommended open reduction internal fixation of her left olecranon fracture. She was amenable with the plan. We discussed the risk and benefits of surgery. Risks included but were not limited to pain, bleeding, infection, damage to adjacent structures, need for further surgery, wound healing complications, loss of limb, . Patient expressed verbal consent and written consent was obtained for the above procedure. Patient was identified in preoperative holding. Operative site was marked in indelible ink. History, physical, consent were reviewed and updated. Patient was surrendered to the anesthesia team, taken to the operative suite. Anesthesia was induced. Patient was then placed in the lateral decubitus position on a well-padded operative table. All bony prominences were padded and an axillary roll was placed. The operative extremity was prepped and draped in the usual sterile fashion. The operative team donned sterile gowns and gloves and a timeout was called. All in attendance agreed regarding the patient's identity, procedure, operative site. Weight-based dose of antibiotics was given prior to incision. I made a posterior approach to the proximal ulna, curving the incision radially at the tip of the olecranon. I dissected through skin and subcutaneous tissue, identified the fracture site. I debrided the fracture site of interposed periosteum and hematoma. I split the distalmost aspect of the triceps tendon to allow for plate placement. I obtained a provisional reduction which I held using a [id number] reduction clamps. Quality was noted to be poor. I placed a precontoured olecranon plate which I provisionally held in place with an olive wire distally, and compress the plate to the olecranon using an 8 mm nonlocking screw. At this point, through the most proximal hole in the plate I drilled for a home run screw. This compressed across the fracture site nicely. I then placed 2 locking screws in the proximal plate which were noted to be extra-articular. I then placed 2 nonlocking screws through the compression slots distally, then completed fixation with locking screws distally. Orthogonal fluoroscopic views demonstrated appropriate fracture reduction, no apparent intra-articular step-off, safe intraosseous hardware placement. Copiously irrigated the wound and closed in layers, repairing the triceps tendon with 0 Vicryl, fascia with 0 Vicryl, subcutaneous tissue with 2-0 Vicryl, and skin with nylon sutures. Sterile dressings consisting of Xeroform, 4 x 4 gauze, soft roll
[2021-09-26 15:17] LABS: POC Glucose,Bedside 154 (70-110)
--- NOTE | 2021-09-26 15:35 | PC.NURSE ---
1532-detailed report called to CAMERON Ty 1535-pt transported to post op via stretcher w/lisa rails up and left in care of CAMERON Ty with bed locked in lowest position, vss, pt stable
--- NOTE | 2021-09-29 13:10 | P.PN_ITS ---
[facility] Anesthesia Record Part II Discharge Time: 15:35 Destination: Surgical Day Care (OP Surgery) PACU nurse assessment reviewed?: Yes Patient Condition:: Good Anesthesia Complications:: None Swallowing reflex intact?: Yes Cyanosis?: No Blood Pressure: 147/85 Pulse Rate: 84 Temperature: 97.6 F Mental Status: Alert & Oriented Pain level:: 0 Nausea and/or vomitting:: None Intake, IV Amount: 0
[2021-09-29 13:11] VITALS: BP 147/85; PULSE 84; TEMP 36.4
[2022-03-22 10:58] LABS: POC Glucose,Bedside 157 (70-110)
== END 2021-09-26 16:35 | disposition home or self-care (01) ==
LOC: OR 08:53
PROVIDERS: PCP Internal Medicine Adolescent Medicine; Visit Provider Orthopaedic Surgery
DX: S52.022A Displaced fracture of olecranon process without intraarticular extension of left ulna, initial encounter for closed fracture (principal); E11.9 Type 2 diabetes mellitus without complications; Z79.4 Long term (current) use of insulin; E03.9 Hypothyroidism, unspecified; I10 Essential (primary) hypertension; Z79.899 Other long term (current) drug therapy; I69.354 Hemiplegia and hemiparesis following cerebral infarction affecting left non-dominant side; W01.0XXA Fall on same level from slipping, tripping and stumbling without subsequent striking against object, initial encounter; Y92.014 Private driveway to single-family (private) house as the place of occurrence of the external cause
CPT/HCPCS: 24685; 73070; 76000; 82962; 96374; C1713; C1776; J2405

== ENCOUNTER → 2021-10-13 08:40 | Outpatient (CLI) | payer MEDICARE, SELFPAY ==
--- NOTE | 2021-10-13 08:43 | XR_ITS ---
FINAL REPORT CLINICAL HISTORY: post op orif elbow COMPARISON: September 19, 2021 FINDINGS: LEFT ELBOW 3 views were obtained. Again noted is a fracture of the olecranon. There is been interval postoperative changes of ORIF with a screw plate and multiple screws present. There are mild degenerative changes. There is no soft tissue abnormality. IMPRESSION: Postoperative changes as described. Reviewed, Interpreted and Dictated by Dariusz Ibarra III, MD Transcribed by Michelle Chandler Authenticated by Dariusz Ibarra III, MD on 10/13/2021 12:49:16 PM [facility]
== END ==
PROVIDERS: PCP Internal Medicine Adolescent Medicine; Visit Provider Orthopaedic Surgery
DX: S42.402A Unspecified fracture of lower end of left humerus, initial encounter for closed fracture (principal); S52.022A Displaced fracture of olecranon process without intraarticular extension of left ulna, initial encounter for closed fracture
CPT/HCPCS: 73080

== ENCOUNTER 2021-10-13 10:10 | Outpatient (RCR) | payer MEDICARE, SELFPAY | END 2021-10-13 11:00 | disposition home or self-care (01) | LOC: OT 10:10 | PROVIDERS: Visit Provider Orthopaedic Surgery | DX: S52.022A Displaced fracture of olecranon process without intraarticular extension of left ulna, initial encounter for closed fracture (principal) | CPT/HCPCS: 97763 ==

== ENCOUNTER → 2021-11-17 08:30 | Outpatient (CLI) | payer MEDICARE, SELFPAY ==
--- NOTE | 2021-11-17 08:42 | XR_ITS ---
FINAL REPORT CLINICAL HISTORY: elbow fx - FOLLOW UP COMPARISON: October 13, 2021 FINDINGS: AP, oblique, and lateral views of the right elbow were obtained. Again seen are postoperative changes from ORIF of the proximal ulna. There has been interval healing of the previously seen olecranon fracture. Hardware is intact. Joint space is preserved. There is no joint effusion or other soft tissue abnormality. IMPRESSION: Interval healing of olecranon fracture. Reviewed, Interpreted and Dictated by Linda Moctezuma MD Transcribed by Michelle Chandler Authenticated by Linda Moctezuma MD on 11/17/2021 09:16:17 AM [facility]
== END ==
PROVIDERS: PCP Internal Medicine Adolescent Medicine; Visit Provider Orthopaedic Surgery
DX: S42.402A Unspecified fracture of lower end of left humerus, initial encounter for closed fracture (principal); S52.022A Displaced fracture of olecranon process without intraarticular extension of left ulna, initial encounter for closed fracture
CPT/HCPCS: 73080

== ENCOUNTER → 2021-12-22 10:51 | Outpatient (CLI) | payer MEDICARE, SELFPAY ==
--- NOTE | 2021-12-22 10:56 | XR_ITS ---
FINAL REPORT CLINICAL HISTORY: ORIF lt elbow COMPARISON: November 17, 2021 FINDINGS: LEFT ELBOW Three views were obtained. There is no acute fracture or dislocation. There are mild degenerative changes. There is no soft tissue abnormality. There are postoperative changes from ORIF of the olecranon. The hardware is stable. IMPRESSION: Postoperative changes with no acute bony abnormality. Reviewed, Interpreted and Dictated by Dariusz Ibarra III, MD Transcribed by Guera Parks Authenticated and [facility]
== END ==
PROVIDERS: PCP Internal Medicine Adolescent Medicine; Visit Provider Orthopaedic Surgery
DX: S42.402D Unspecified fracture of lower end of left humerus, subsequent encounter for fracture with routine healing (principal)
CPT/HCPCS: 73080

== ENCOUNTER 2022-01-30 14:00 | Outpatient (RCR) | payer MEDICARE, SELFPAY ==
--- NOTE | 2021-10-19 16:37 | HMH.OTOPEV ---
OT Inpatient Evaluation Rehab OT Outpatient Eval Start: 10/19/21 15:50 Freq: Status: Active Protocol: Document 10/19/21 15:50 ZOILA (Rec: 10/19/21 16:37 ZOILA [id number]) Electronically Signed By Caitlin Dietrich OT 10/19/21 15:50 Outpatient Therapy Subjective History Subjective History 75 year old female referred to skilled OP OT services for s/ p ORIF L UE olcranon fx on 09/26. Patient had a recent fall at home on 09/15/21 when attempting to carry box into her home. Chief Complaint Pain,Weakness,Decreased Manager Area Strength Symptom Type Ache Symptoms Relieved By Brace/Support,OTC Meds Symptoms Aggravated By Physical Activity Prior Functional Limitations None Current Functional Limitations Reaching,Lifting Symptom Description Constant and Continuous Level of pain today (0-10) 4 Pain scale - at its best (0-10) 4 Pain scale - at its worst (0-10) 5 Shoulder/Elbow Eval Shoulder Objective Measurements Elbow Objective Measurements Elbow ROM Left pain with active ROM elbow exam standard left Elbow Extension Active Range of Motion ( 38 degrees) Elbow Flexion Active Range of Motion ( 110 degrees) Elbow Pronation of Forearm Range of 90 Motion (degrees) Elbow Supination of Forearm Range of 70 Motion (degrees) Elbow MMT Elbow Flexion Strength Grade 2 Poor Brachialis Strength Grade 2 Poor Elbow Extension Strength Grade 2 Poor Wrist/Hand Eval Manager Area/Pinch Strength Right Manager Area Strength Measurement (lbs) 40 Left Manager Area Strength Measurement (lbs) 20 OT Outpatient Assessment Impairments Problems/Impairments Impaired Range of Motion, Impaired Strength,Subjective C /O Pain Prognosis Rehab Potential Good Clinical Impression Consistent with Diagnosis Yes Short Term Goals Number of Weeks 2 Increase Range of Motion Yes: AROM of L UE elbow flex: 120; ext: 30; SUP:75 Increase Strength Yes: Improve L UE welding estimator strength: 25# Decrease Subjective C/O Pain Yes: 10/01 pain at worst Patient to be Ind w/ HEP Yes: AAROM Patient to be Ind w/ Advanced HEP Yes: Manager Area strengthening Mcfp Goals Number of Weeks 4 Increase Range of Motion Yes: AROM of L UE elbow flex: 140; ext: 25; SUP:80 Increase Strength Yes: Improve L UE welding estimator str
--- NOTE | 2021-11-13 14:01 | HMH.RHREAS ---
Rehab Reassessment Rehab OP Re-assessment Start: 11/13/21 13:49 Freq: Status: Active Protocol: Document 11/13/21 13:49 YAMILANARESH (Rec: 11/13/21 13:58 ZOILA [id number]) Electronically Signed By Caitlin Dietrich, OT 11/13/21 13:49 Rehab Re-assessment Subjective Subjective My elbow is moving better. Objective Objective Notes Patient has participated well in skilled OP OT services 1-2 times a wk for the past 30 days in order to address PROM, AAROM, AROM, barrel lathe operator inside strengthening and decrease pain levels for s/p ORIF left elbow 7 weeks ago for olecrannon fx. Assessment Progress Assessment Progressing as Expected Assessment Notes Evaluation on 10/19/21 5/10 pain consistently AROM of L UE elbow ext: 38 flex: 110 Pro: 90 Sup: 70 2/5 strength L barrel lathe operator inside: 20# R barrel lathe operator inside: 40# 11/13/21 Re-evaluation on 11/13/21 5 pain intermittent AROM of L UE elbow ext: 10 flex: 130 Pro: 90 Sup: 80 3+/5 strength L barrel lathe operator inside: 25# R barrel lathe operator inside: 40# Patient goals met PROM and AROM of STGs of L UE elbow L barrel lathe operator inside strength L elbow strength Goals Not Met Pain level and LTGs Revised Goals 3/10 pain consistently AROM of L UE elbow ext: 8 flex: 135 Sup: 90 3+/5 to 4-/5 strength L barrel lathe operator inside: 30# Plan Plan Continue POC Frequency of Therapy 2x/wk Duration of therapy 4 weeks Time and Billing Re-Eval Time 10 Re-Eval Billing Units 1 PHYSICIAN CERTIFICATION: I certify the specified therapy services for Lizzie Peres are required, authorized, and reviewed every 30 days.
== END 2022-01-30 14:05 | disposition home or self-care (01) ==
LOC: OT 14:00
PROVIDERS: PCP Internal Medicine Adolescent Medicine; Visit Provider Orthopaedic Surgery
DX: S52.022D Displaced fracture of olecranon process without intraarticular extension of left ulna, subsequent encounter for closed fracture with routine healing (principal)
CPT/HCPCS: 97010; 97014; 97035; 97110; 97140; 97164; 97165; 97530; G0283

== ENCOUNTER → 2022-03-30 08:23 | Outpatient (CLI) | payer MEDICARE, SELFPAY ==
--- NOTE | 2022-03-30 08:44 | XR_ITS ---
FINAL REPORT CLINICAL HISTORY: Left elbow fracture, follow-up COMPARISON: 12/22/2021 FINDINGS: LEFT ELBOW 3 views were obtained. There are postoperative changes of the proximal ulna with a sideplate and multiple screws. Bony alignment is stable. Overall appearance is stable. There is no new bony abnormality. IMPRESSION: Stable postoperative changes of the proximal ulna. Reviewed, Interpreted and Dictated by Dariusz Ibarra III, MD Transcribed by Ceci Foss Authenticated and [facility]
== END ==
PROVIDERS: PCP Internal Medicine Adolescent Medicine; Visit Provider Orthopaedic Surgery
DX: S42.402A Unspecified fracture of lower end of left humerus, initial encounter for closed fracture (principal)
CPT/HCPCS: 73080

== ENCOUNTER → 2022-09-21 07:03 | Outpatient (CLI) | payer MEDICARE, SELFPAY | PROVIDERS: PCP Internal Medicine Adolescent Medicine; Visit Provider Internal Medicine Adolescent Medicine | DX: R07.9 Chest pain, unspecified (principal); K30 Functional dyspepsia | CPT/HCPCS: 78452; 93017; A9502; J2785 ==

== ENCOUNTER → 2022-09-28 08:56 | Outpatient (CLI) | payer MEDICARE, SELFPAY ==
--- NOTE | 2022-09-28 09:01 | XR_ITS ---
FINAL REPORT CLINICAL HISTORY: Elbow fracture w sx x 1 yr ago, 0 complaints since. F/u images. COMPARISON: 03/30/2022 FINDINGS: LEFT ELBOW 3 views were obtained. There is a sideplate and screws securing the posterior olecranon. There is no acute fracture or dislocation. The joint spaces are intact. No joint effusion is identified. There is no soft tissue abnormality. IMPRESSION: Postoperative changes as above. No acute bony abnormality. Reviewed, Interpreted and Dictated by Bryan Woody MD Transcribed by Michelle Chandler Authenticated and [facility]
== END ==
PROVIDERS: PCP Internal Medicine Adolescent Medicine; Visit Provider Orthopaedic Surgery
DX: S52.022A Displaced fracture of olecranon process without intraarticular extension of left ulna, initial encounter for closed fracture (principal)
CPT/HCPCS: 73080

== ENCOUNTER 2024-07-28 13:32 | Outpatient (CLI) | payer MEDICARE, SELFPAY ==
[2024-07-28 14:10] LABS: Hemoglobin A1C 7.3 % (4.0-6.0)
[2024-07-28 14:39] LABS: Alanine Aminotransferase 29 U/L (12-78); Albumin Level 4.1 g/dl (3.5-5.0); Albumin/Globulin Ratio 2.1 (1.1-1.8); Alkaline Phosphatase 69 U/L (38-126); Anion Gap 9.5 mEq/L (5-15); Aspartate Amino Transferase 35 U/L (14-36); Bilirubin,Total 0.4 mg/dl (0.2-1.3); Blood Urea Nitrogen 22 mg/dl (7-17); Calcium 9.3 mg/dl (8.4-10.2); Carbon Dioxide 30 mmol/L (22.0-30.0); Chloride 102 mmol/L (98-107); Chol/HDL Ratio 1.9 (1-3.5); Cholesterol 137 mg/dl (140-200); Estimated Glomerular Filt Rate 81 ml/min (>60); GFR (African American) 98 ML/MIN (>60); Glucose 100 mg/dl (74-100); HDL Cholesterol 73 mg/dl (40-60); Potassium 3.5 mmoL/L (3.5-5.1); Sodium 138 mmol/L (136-145); Total Protein,Serum 6.1 g/dl (6.3-8.2); Triglycerides 53 mg/dl (30-150); VLDL Cholesterol 11 mg/dL (0-40)
[2024-07-28 14:50] LABS: Direct LDL Cholesterol 38.05 mg/dL (100-129)
[2024-07-28 14:55] LABS: Free T4 (Free Thyroxine) 1.85 ng/dl (0.78-2.19)
[2024-07-28 15:17] LABS: HIV Combo NEGATIVE (Negative)
[2024-07-28 15:27] LABS: Hepatitis C Ab Qual. W/ RFX NEGATIVE (Negative)
== END 2024-07-28 23:59 | disposition home or self-care (01) ==
LOC: LAB 13:34
PROVIDERS: PCP Internal Medicine; Visit Provider Internal Medicine
DX: Z00.00 Encounter for general adult medical examination without abnormal findings (principal); I63.9 Cerebral infarction, unspecified; Z13.220 Encounter for screening for lipoid disorders; Z79.899 Other long term (current) drug therapy; Z13.29 Encounter for screening for other suspected endocrine disorder; E03.9 Hypothyroidism, unspecified; Z11.4 Encounter for screening for human immunodeficiency virus [HIV]; Z13.1 Encounter for screening for diabetes mellitus; Z11.59 Encounter for screening for other viral diseases
CPT/HCPCS: 36415; 80053; 80061; 83036; 84439; 84443; 86803; 87389

== ENCOUNTER 2024-12-01 12:46 | Outpatient (CLI) | payer MEDICARE, SELFPAY ==
--- OUTSIDE RECORDS SUMMARY | 2024-12-01 12:50 | XMS_ITS | Clinical Summary ---
Author Organization [facility] Address [address] [place] [address] Care Team Providers Care Material Processor Name Role Phone Eros Cohn MD Primary Care Provider [phone] Family History Medical History Relation Name Comments Diabetes Brother Heart Problem Father Diabetes Mother Diabetes Sister 1 Heart attack Sister 2 Relation Name Status Comments Brother Father Mother Sister 1 Sister 2 Social History Tobacco Use Types Packs/Day Years Used Date Smoking Tobacco: Never Comments Unknown Sex and Gender Information Value Date Recorded Sex Assigned at Not on file Legal Sex Female 8:40 PM EDT Gender Identity Not on file Sexual Orientation Not on file Last Filed Vital Signs Vital Sign Reading Time Taken Comments Blood Pressure - - Pulse - - Temperature - - Respiratory Rate - - Oxygen Saturation - - Inhaled Oxygen Concentration - - Weight 67.8 kg (149 lb 6.1 oz) 06/03/2014 9:23 A M EST Height 164.5 cm (5' 4.75 ) 06/03/2014 9:23 AM ES T Body Mass Index 25.05 06/03/2014 9:23 AM EST Plan of Treatment Health Maintenance Due Date Last Done Comments [facility]-Bone Density Scan 1945 [facility]-Depression Screening 1945 [facility]-Infant/Child/Adol SDOH Screenings 1945 [facility]- SDOH Screenings 11/23/1965 [facility]-Adult SDOH Screenings 11/23/1965 [facility]-DTaP,Tdap,and Td Vaccine s (1 - Tdap) 11/23/1966 [facility]-Pneumococcal Vaccine: 50 + Years (1 of 1 - PCV) 11/23/1997 [facility]-Zoster Vaccines (1 of 2) 11/23/1997 [facility]-RSV Vaccine: 60+ Years o r (1 - 1-dose 75+ series) 11/23/2022 HNM-CRGBQ-16 Vaccine (1 - 20 24-25 season) 2024 [facility]-Influenza Vaccine (Seaso n Ended) 2025 HPV Vaccines Aged Out No longer eligi ble based on patient's age to complete this topic [facility]-HIB Vaccines Aged Out No longer e ligible based on patient's age to complete this topic [facility]-Hepatitis A Vaccines Aged Out No longer eligible based on patient's age to complete this topic [facility]-IPV Vaccines Aged Out No longer e ligible based on patient's age to complete this topic [facility]Y-Rotavirus Vaccines Aged Out No lo nger eligible based on patient's age to complete this topic Insurance [facility] [place] [address] Care Teams Material Processor Relationship Specialty Start Date End Date Eros Cohn MD [address] [place] [address] PCP - General 11/04/20
--- NOTE | 2024-12-01 13:00 | CA_ITS ---
APPROVED REPORT EXAM: Comprehensive 2D, Doppler, and color-flow Echocardiogram Hydrographic Surveyor: Petra Fontenot RT(R) Ht: 5 ft 4 in Wt: 138lbs BSA: 1.67 BP: 133/87 mmHg Indications: Shortness of breath 2D Dimensions Left Atrium 2.35 cm F: 2.7 - 3.8 LVEF (Alicia's) 56.60 % F: 54 - 74 LVOT 1.88 cm (M/F) 1.5-2.5 LV Volume 59.00 mL F: 46 - 106 LV Volume Index 35.3 mL/m2 F: 29 - 61 LA Volume 28.20 mL LA Volume Index 16.89 mL/m2 (M/F) 16-34 EF AP4 58.50 % EF AP2 53.2 % EF BP 56.6 % GL Strain -18.4 % M-Mode Dimensions RVDd 2.44 cm (0.9-2.6) LVDd 3.04 cm (3.5-5.7) Ao Diam 2.61 cm (2.0-3.7) LVDs 2.10 cm (3.5-5.7) IVSd 0.85 cm (0.6-1.1) PWd 0.85 cm (0.6-1.1) EF (Teich) 60.20% FS 30.90% EDV (Teich) 36.20 mL TAPSE 1.33 (<1.7) ESV (Teich) 14.40 mL LV Diastology MED E' 15.2 (>= 7 cm/sec) LAT E' 10.4 (>= 10 cm/sec) Aortic Valve LVOT Max 107.0 (70-110 cm/s) POLO Index 1.30 cm2/m2 LVOT VTI 20.66 cm AoV Peak Jose Miguel. 134.0 (50-130 cm/s) AO Mean GR. 3.60 (<5 mmHg) AO VTI 26.4 (18-25 cm) POLO (VTI) 2.17 (2.5-4.5 cm2) Tricuspid Valve TR P. Velocity 268.00 cm/s Left Ventricle The left ventricle is normal size. The left ventricular systolic function is normal. The left ventricular ejection fraction is within the normal range. Proximal septal thickening is present. The septum is asynchronous. Diastolic function is indeterminate. LVEF is 60%. Right Ventricle The right ventricle is normal size. The right ventricular systolic function is normal. Atria Left atrium is mildly dilated. The right atrium size is normal. There is no Doppler evidence of interatrial shunt. Aortic Valve The aortic valve is mildly thickened. There is no aortic valvular stenosis. Trace aortic regurgitation. Mitral Valve The mitral valve is normal in structure. No evidence of mitral valve stenosis. Mild mitral regurgitation. Tricuspid Valve Tricuspid valve is grossly normal in structure and function. Mild tricuspid regurgitation. RVSP is 25-30 mmHg. Pulmonic Valve The pulmonary valve is normal in structure. Trace pulmonic regurgitation. Great Vessels The aortic root is normal in size. IVC is normal in size and collapses >50% with inspiration. Pericardium There is no pericardial effusion. Other Information Study Quality: Fair Conclusion Normal biventricular systolic function. Mild LA dilation. Mild MR, mild TR. Electronically signed by : Chasity Huynh MD 12/12/2024 16:14:36
== END 2024-12-01 23:59 | disposition home or self-care (01) ==
LOC: RT 12:48
PROVIDERS: PCP Internal Medicine; Visit Provider Internal Medicine
DX: I08.1 Rheumatic disorders of both mitral and tricuspid valves (principal)
CPT/HCPCS: 93306

== ENCOUNTER 2025-01-01 12:45 | Outpatient (CLI) | payer MEDICARE, SELFPAY ==
--- OUTSIDE RECORDS SUMMARY | 2025-01-01 12:49 | XMS_ITS | Clinical Summary ---
Author Organization [facility] Address [address] [place] [address] Care Team Providers Care Seater Grinder Name Role Phone Eros Cohn MD Primary Care Provider [phone] Family History Medical History Relation Name Comments [...] r (1 - 1-dose 75+ series) 11/23/2022 [id number]-22 Vaccine (1 - 20 24-25 season) 2024 [facility]-Influenza Vaccine (#1) 2025 HPV Vaccines Aged Out No longer [...] patient's age to complete this topic Insurance [facility] [address] [facility] [place] [address] Care Teams Seater Grinder Relationship Specialty Start Date End Date Eros Cohn MD [address] [place] [address] PCP - General 11/04/20
--- NOTE | 2025-01-01 13:00 | MR_ITS ---
FINAL REPORT TECHNIQUE: Multiplanar MR without contrast CLINICAL HISTORY: Cervical pain w/radiculopathy. COMPARISON: None FINDINGS: Limited images of the posterior fossa are unremarkable. Alignment is normal. Cervical spinal cord shows normal signal and contour. Partial ankylosis of the C2-3 vertebra. C3-4: Mild annular disc bulge. Small central disc protrusion. Mild facet arthropathy. Mild central canal stenosis. Mild neural foraminal narrowing. C4-5: Moderate annular disc bulge. Ligamentum flavum hypertrophy. Facet overgrowth. Moderate central canal stenosis. Moderate bilateral neural foraminal narrowing. C5-6: Bony hypertrophic changes with moderate bilateral neural foraminal narrowing. Tiny left paracentral disc protrusion. C6-7: Moderate annular disc bulge. Mild facet arthropathy. Mild central canal stenosis. Moderate bilateral neural foraminal narrowing. C7-T1: Mild annular disc bulge. Mild neural foraminal narrowing. IMPRESSION: Moderate degenerative disc changes as above, most pronounced at C4-5. Reviewed, Interpreted and Dictated by Rosanna Young MD Transcribed by Yoselin Swenson Authenticated and [facility]
== END 2025-01-01 23:59 | disposition home or self-care (01) ==
LOC: RAD 12:46
PROVIDERS: PCP Internal Medicine; Visit Provider Internal Medicine
DX: M47.22 Other spondylosis with radiculopathy, cervical region (principal)
CPT/HCPCS: 72141

== ENCOUNTER 2025-01-22 14:01 | Emergency (ER) | payer MEDICARE, SELFPAY ==
--- OUTSIDE RECORDS SUMMARY | 2025-01-12 15:30 | XMS_ITS | Encounter Summary ---
Author Organization [facility] Address [address] [place] [address] Care Team Providers Care Optician Manager Name Role Phone Girma Gonzalez Primary Care Provider + Reason for Visit * Reason Comments Diabetes Type II Diabetes Hypothyroidism Encounter Details Date Type Department Care Team (Late st Contact Info) Description 01/12/2025 3:30 PM EDT Office Visit [facility] [address] [phone] Rafaela Lucas PA [address] [address] Type 2 diabetes mellitus with hyperglycemia, with long-term current use of insulin (Primary Dx); Postsurgical hypothyroidism; Primary hypertension Social History Tobacco Use Types Packs/Day Years Used Date Smoking Tobacco: Never Smokeless Tobacco: Never Alcohol Use Standard Drinks/Week Comments Never 0 (1 standard drink = 0.6 oz pur e alcohol) AUDIT-C Answer Date Recorded Q1: How often do you have a drink containing alc ohol? Never 05/09/2020 Average Number of Drinks Not on file 020 Frequency of Binge Drinking Not on file 04/24 Comments Unknown Sex and Gender Information Value Date Recorded Sex Assigned at Not on file Legal Sex Female 1:43 PM EDT Gender Identity Not on file Sexual Orientation Not on file documented as of this encounter Last Filed Vital Signs Vital Sign Reading Time Taken Comments Blood Pressure 144/74 01/12/2025 3:32 PM EDT Pulse 87 01/12/2025 3:32 PM EDT Temperature - - Respiratory Rate - - Oxygen Saturation 99% 01/12/2025 3:32 PM EDT Inhaled Oxygen Concentration - - Weight 59.1 kg (130 lb 3.2 oz) 01/12/2025 3:32 P M EDT Height 162.6 cm (5' 4.02 ) 01/12/2025 3:32 PM ED T Body Mass Index 22.34 01/12/2025 3:32 PM EDT documented in this encounter Progress Notes * Rafaela Lucas PA - 01/12/2025 3:30 PM EDT Images from the original note were not included. Office Note Date: 01/12/2025 Patient Name: Lizzie Peres : 1945 Chief Complaint Patient presents with Diabetes Type II Diabetes Hypothyroidism History of Present Illness: Lizzie Peres is a 79 y.o. female who presents for follow-up for type 2 diabetes diagnosed in 2004. She remains on basal bolus insulin. We switched her Tresiba due to insurance to Basaglar after last visit. She just started the Basaglar and is taking 14 units daily. She reports she was having some hypoglycemia on the 18 units. She remains on Fiasp 4 to 5 units 3 times a day +1 unit for every 50 mg/dL her glucose is above 150 mg/dL. She continues to use the [employer] bran continuous glucose monitor. She reports overall her blood sugars have been okay but she does have a lot of fluctuations. She is up-to-date on her eye exam she had her appointment in March. We reduced her levothyroxine dose to 125 mcg daily last visit. She reports she has noted increased hair loss. She reports she is taking this regularly and correctly. She had an MRI on her neck and is awaiting these results. She continues to have trouble. Subjective Review of Systems: Review of Systems Constitutional: Negative. Cardiovascular: Negative. Gastrointestinal: Negative. Endocrine: Negative. Musculoskeletal: Positive for neck pain and neck stiffness. Neurological: Negative. The following portions of the patient's history were reviewed and updated as appropriate: allergies, current medications, past family history, past medical history, past social history, past surgicalhistory, and problem list. Objective Vitals: 01/12/25 1532 BP: 144/74 BP Location: Left arm Patient Position: Sitting Pulse: 87 SpO2: 99% Weight: 59.1 kg (130 lb 3.2 oz) Height: 162.6 cm (64.02 ) Body mass index is 22.34 kg/m??. Physical Exam Vitals reviewed. Constitutional: General: She is not in acute distress. Appearance: Normal appearance. Neurological: Mental Status: She is alert. HEMOGLOBIN A1C Lab Results Component Value Date HGBA1C 7.0 (A) 01/12/2025 GLUCOSE Glucose Date Value Ref Range Status 01/12/2025 161 (A) 70 - 130 mg/dL Final CMP Lab Results Component Value Date GLUCOSE 132 (H) 04/27/2024 BUN 15 04/27/2024 CREATININE 0.74 04/27/2024 EGFRIFNONA 77 03/07/2021 BCR 20.3 04/27/2024 K 3.8 04/27/2024 CO2 28.0 04/27/2024 CALCIUM 9.3 04/27/2024 AST 21 08/22/2023 ALT 12 08/22/2023 LIPID PANEL Lab Results Component Value Date CHOL 155 08/22/2023 CHLPL 150 06/21/2014 TRIG 59 08/22/2023 HDL 78 (H) 08/22/2023 LDL 65 08/22/2023 URINE MICROALBUMIN/CREATININE RATIO Microalbumin/Creatinine Ratio Date Value Ref Range Status 08/22/2023 Final Comment: Unable to calculate TSH Lab Results Component Value Date TSH 0.268 (L) 04/27/2024 Assessment / Plan Assessment & Plan: 1. Type 2 diabetes mellitus with hyperglycemia, with long-term current use of insulin Her hemoglobin A1c today is 7.0%. This has improved as compared to August. I reviewed her [employer] bran download. Her average glucose for the last 2 weeks is 166 mg/dL with 61% of her readings within range, 31% high, 7% very high, 1% low and 0% very low. We did not make any changes to her insulin regimen today. Her weight is down 10 pounds since her appointment in August. I encouraged healthy regular eating habits. We discussed that if she continues to lose weight we may need to reduce her insulin. Urine microalbumin/creatinine ratio pending today. Will send note with results and plan. - POC Glucose, Blood - POC Glycosylated Hemoglobin (Hb A1C) - Microalbumin / Creatinine Urine Ratio - Urine, Clean Catch; Future - Microalbumin / Creatinine Urine Ratio - Urine, Clean Catch 2. Postsurgical hypothyroidism TFTs pending today. Will send note with results and plan. For now she will continue the levothyroxine 125 mcg daily. I will update her prescription once her labs have been reviewed. - T4, Free; Future - TSH; Future - T4, Free - TSH 3. Primary hypertension Her systolic blood pressure was up some today on recheck before she was leaving this was 134/74. She will continue her current medications. Return in about 4 months (around 05/15/2025) for Recheck. This note was dictated using [employer] voice recognition. Electronically signed by: CARYN Rao 01/12/2025 documented in this encounter Plan of Treatment Upcoming Encounters Date Type Department Care Team (Late st Contact Info) Description 05/18/2025 2:00 PM EST Office Visit [facility] [address] [phone] Rafaela Lucas PA [address] [id number] documented as of this encounter Procedures Procedure Name Priority Date/Time Associated Diagnosis Comments MICROALBUMIN / CREATININE URINE RATIO Routine 01/12/2025 4:17 PM EDT Type 2 diabetes mellitus with hyperglycemia, with long-term current use of insulin TSH Routine 01/12/2025 4:17 PM EDT Postsurgical hypothyroidism T4, FREE Routine 01/12/2025 4:17 PM EDT Postsurgical hypothyroidism POCT GLYCOSYLATED HEMOGLOBIN (HGB A1C) Routine 01/12/2025 3:49 PM EDT Type 2 diabetes mellitus with hyperglycemia, with long-term current use of insulin POCT GLUCOSE, BLD (NON STRIP) Routine 01/12/2025 3:48 PM EDT Type 2 diabetes mellitus with hyperglycemia, with long-term current use of insulin documented in this encounter Results * Microalbumin / Creatinine Urine Ratio - Urine, Clean Catch (01/12/2025 4:17 PM EDT) [facility] Microalbumin/C reatinine Ratio 01/13/2025 2:39 AM EDT [facility] Comment:Unable to calculate Creatinine, Urine 11.4 mg/dL 01/13/2025 2:39 AM EDT [facility] Microalbumin, Urine <1.2 mg/dL 01/13/2025 2:39 AM EDT [facility] Urine Urine specimen obtained by clean catch procedure / Unknown Collection / Unknown 01/12/2025 4:17 PM EDT 01/12/2025 4:17 PM EDT Rafaela RUBIN URINE ORDERABLES Final Re sult Performing Organization Address City/[facility]/ZIP Co de Phone Number [facility]
[address] [place] [address], * (ABNORMAL) TSH (01/12/2025 4:17 PM EDT) [facility] TSH 0.199(L) 0.270 - 4.200 uIU/mL 01/13/2025 2:56 AM EDT [facility] Blood Structure of left upper limb / Unknown Venipuncture / Unknown 01/12/2025 4:17 PM EDT 01/12/2025 4:17 PM EDT Rafaela RUBIN LAB BLOOD ORDERABLES Laura l Result Performing Organization Address City/[facility]/ZIP Co de Phone Number [facility]
[address] [place] [address], [place] [phone] * (ABNORMAL) T4, Free (01/12/2025 4:17 PM EDT) [facility] Free T4 1.76(H) 0.92 - 1.68 ng/dL 01/13/2025 2:56 AM EDT [facility] Blood Structure of left upper limb / Unknown Venipuncture / Unknown 01/12/2025 4:17 PM EDT 01/12/2025 4:17 PM EDT Rafaela RUBIN LAB BLOOD ORDERABLES Laura l Result [facility]
[address] [place] [address], * (ABNORMAL) POC Glycosylated Hemoglobin (Hb A1C) (01/12/2025 3:49 PM EDT) Hemoglobin A1C 7.0(A) 4.5 - 5.7 % [facility] Lot Number [id number] [facility] Expiration Date 09/04/2026 [facility] Blood 01/12/2025 3:49 PM EDT Rafaela RUBIN POINT OF CARE TEST ORDERA BLES Final Result [facility]
[address] [place] [address], [place] [phone] * (ABNORMAL) POC Glucose, Blood (01/12/2025 3:48 PM EDT) Glucose 161(A) 70 - 130 mg/dL Lot Number [id number] Expiration Date 07/27/2025 Blood 01/12/2025 3:48 PM EDT Rafaela RUBIN POINT OF CARE TEST ORDERA BLES Final Result documented in this encounter Visit Diagnoses Diagnosis Type 2 diabetes mellitus with hyperglycemia, with long-term current use of insulin- Primary Postsurgical hypothyroidism Primary hypertension Unspecified essential hypertension documented in this encounter Care Teams Optician Manager Relationship Specialty Start Date End Date Girma Gonzalezel, DO [address] [place] [address] [place] [id number] PCP - General Internal Medicine 08/25/24 documented as of this encounter
[2025-01-22 13:42] VITALS: BP 130/90; PULSE 86; RESP 18; TEMP 36.7; O2SAT 99; BMI 22.3
[2025-01-22 13:55] VITALS: BP 130/99; PULSE 97; RESP 17; O2SAT 97
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
[2025-01-22 14:00] VITALS: BP 141/72; PULSE 97; RESP 22; O2SAT 98
--- NOTE | 2025-01-22 14:01 | PC.NURSE ---
pt. laying in bed at this time. No needs an call light is in reach.
--- NOTE | 2025-01-22 14:12 | [facility].EDGENADL ---
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 her bedside. She promises me that she will return with any significant worsening of her symptoms. No other injuries identified. Procedures <Russell Duke MD - Last Filed: 01/22/25 16:40> FAST Exam FAST Exam 1: Fluid in Morison's pouch: No Fluid in Splenorenal Junction: No Fluid around bladder, Transverse view: No Fluid around bladder, Sagittal view: No Fluid in Pericardial Sac: No Gross Wall Motion Abnormality: No Study normal for this patient: Yes Images saved for further review: Yes Additional Comments: Lung sliding present bilaterally Critical Care <Russell Duke MD - Last Filed: 01/22/25 16:40> Critical Care Time Critical Care Time: Yes Attestation: On 01/22/25, the high probability of a clinically significant, sudden or life threatening deterioration of the following system(s) required my full and direct attention, intervention and personal management. The time I documented below is in addition to time spent performing reported procedures but includes the following listed in this critical care notation. Total Time Total Critical Care Time: 35
[2025-01-22 14:13] LABS: Alanine Aminotransferase 17 U/L (12-78); Albumin Level 3.4 g/dl (3.5-5.0); Albumin/Globulin Ratio 1.6 (1.1-1.8); Alkaline Phosphatase 73 U/L (38-126); Anion Gap 6.8 mEq/L (5-15); Aspartate Amino Transferase 24 U/L (14-36); Bilirubin,Total 0.4 mg/dl (0.2-1.3); Blood Urea Nitrogen 22 mg/dl (7-17); Calcium 9.0 mg/dl (8.4-10.2); Carbon Dioxide 27 mmol/L (22.0-30.0); Chloride 106 mmol/L (98-107); Creatine Kinase 121 U/L (30-135); Creatinine,Serum 0.60 mg/dl (0.52-1.04); Estimated Glomerular Filt Rate 97 ml/min (>60); GFR (African American) 117 ML/MIN (>60); Globulin 2.1 g/dL (1.3-3.2); Glucose 142 mg/dl (74-100); Lipase 32 U/L (23-300); Potassium 3.8 mmoL/L (3.5-5.1); Sodium 136 mmol/L (136-145); Total Protein,Serum 5.5 g/dl (6.3-8.2)
--- OUTSIDE RECORDS SUMMARY | 2025-01-22 14:15 | XMS_ITS | Clinical Summary ---
Author Organization [facility] Address [address] [place] [address] Care Team Providers Care Community Assistant Name Role Phone Eros Cohn MD Primary Care Provider [phone] Family History Medical History Relation Name Comments [...] r (1 - 1-dose 75+ series) 11/23/2022 [id number] Vaccine (1 - 20 24-25 season) 2024 [...] patient's age to complete this topic Insurance [facility] [id number] [facility] [place] [address] Care Teams Community Assistant Relationship Specialty Start Date End Date Eros Cohn MD [address] [place] [address] PCP - General 11/04/20
--- OUTSIDE RECORDS SUMMARY | 2025-01-22 14:15 | XMS_ITS | Encounter Summary ---
Author Organization [facility] Address [address] [place] [address] Care Team Providers Care Supervisor Felting Name Role Phone Girma Gonzalez DO Primary Care Provider + Reason for Visit * Reason Onset Date Comments Med Refill 01/13/2025 Encounter Details Date Type Department Care Team (Late st Contact Info) Description 01/13/2025 Refill [facility] [address] [place] [address] Rafaela Lucas PA [address] [place] [address] Social History Tobacco Use Types Packs/Day Years [...] on file documented as of this encounter Plan of Treatment Upcoming Encounters Date Type Department Care Team (Late st Contact Info) Description 05/18/2025 2:00 PM EST Office Visit [facility] [address] [place] [phone] Rafaela Lucas PA [address] [place] [address] documented as of this encounter Visit Diagnoses Not on filedocumented in this encounter Care Teams Supervisor Felting Relationship Specialty Start Date End Date Girma Gonzalez DO [address] [place] [address] PCP - General Internal Medicine 08/25/24 documented as of this encounter
--- OUTSIDE RECORDS SUMMARY | 2025-01-22 14:15 | XMS_ITS | Encounter Summary ---
Author Organization [facility] Address [address] [place] [address] Care Team Providers Care Pet Crematory Worker Name Role Phone Girma Gonzalez DO Primary Care Provider + Reason for Visit * Reason Comments Med Refill Encounter Details Date Type Department Care Team (Late Contact Info) Description 11/04/2024 Refill [facility] [address] [facility] [address] [place] [address] Rafaela Lucas PA [address] [facility] [address] [place] [address] Social History Tobacco Use Types Packs/Day [...] Description 05/18/2025 2:00 PM EST Office Visit [facility] [address] [facility] [address] [place] [address] Rafaela Lucas PA [address] [facility] [address] [place] [address] documented as of this encounter Visit Diagnoses Not on filedocumented in this encounter Care Teams Pet Crematory Worker Relationship Specialty Start Date End Date Girma Gonzalez DO [address] [place] [address] PCP - General Internal Medicine 08/25/24 documented as of this encounter
--- OUTSIDE RECORDS SUMMARY | 2025-01-22 14:15 | XMS_ITS | Encounter Summary ---
Author Organization [facility] Address [address] [place] [address] Care Team Providers Care Surfacing Machine Operator Name Role Phone Girma Gonzalez DO Primary Care Provider + Reason for Visit * Reason Onset Date Comments Fiasp Approval 01/08/2025 Encounter Details Date Type Department Care Team (Late st Contact Info) Description 01/08/2025 Prior Authorization [facility] [address] [address] Rafaela Lucas PA [address] [facility] [address] [place] [address] Fiasp Approval Social History Tobacco Use Types Packs/Day Years [...] on file documented as of this encounter Miscellaneous Notes * Telephone Encounter - Sommer Muñoz MA - 01/08/2025 8:24 AM EDT LIZZIE RODRIGUEZ ([place]: [id number]) Rx #: [id number] Fiasp FlexTouch 100UNIT/ML pen-injectors Form [employer] Electronic PA Form (2017 COPDP) Created 19 hours ago Sent to Plan Determination Favorable 22 minutes ago * Telephone Encounter - Sommer Muñoz MA - 01/08/2025 7:58 AM EDT PA for Fiasp submitted via CMM. documented in this encounter Plan of Treatment Upcoming Encounters Date Type Department Care Team (Late st Contact Info) Description 05/18/2025 2:00 PM EST Office Visit [facility] [address] [facility] [address] [place] [address] Rafaela Lucas PA [address] [facility] [address] [place] [address] documented as of this encounter Visit Diagnoses Not on filedocumented in this encounter Care Teams Surfacing Machine Operator Relationship Specialty Start Date End Date Girma Gonzalez DO [address] [place] [address] PCP - General Internal Medicine 08/25/24 documented as of this encounter
--- OUTSIDE RECORDS SUMMARY | 2025-01-22 14:15 | XMS_ITS | Encounter Summary ---
Author Organization [facility] Address [address] [place] [address] Care Team Providers Care Sales And In Home Delivery Specialist Name Role Phone Girma Gonzalez DO Primary Care Provider + Encounter Details Date Type Department Care Team (Latest Contact Info) Description 01/12/2025 Travel Social History Tobacco Use Types Packs/Day Years [...] Description 05/18/2025 2:00 PM EST Office Visit [facility] [address] [facility] [address] [place] [address] Rafaela Lucas PA [address] [facility] [address] [place] [address] documented as of this encounter Visit Diagnoses Not on filedocumented in this encounter Care Teams Sales And In Home Delivery Specialist Relationship Specialty Start Date End Date Girma Gonzalez DO [address] [place] [phone] PCP - General Internal Medicine 08/25/24 documented as of this encounter
--- OUTSIDE RECORDS SUMMARY | 2025-01-22 14:15 | XMS_ITS | Encounter Summary ---
Author Organization [facility] Address [address] [place] [address] Care Team Providers Care Belt Puncher Name Role Phone Girma Gonzalez DO Primary Care Provider + Encounter Details Date Type Department Care Team (Late st Contact Info) Description 01/07/2025 Refill [facility] [address] [facility] [address] [place] [address] Rafaela Lucas PA [address] [facility] [address] [place] [address] Social History Tobacco Use Types [...] encounter Miscellaneous Notes * Telephone Encounter - Geri Pope - 01/07/2025 4:04 PM EDT See note from Ana Khan regarding PA below Rx Refill Note Requested Prescriptions Pending Prescriptions Disp Refills Insulin Aspart, w/Niacinamide, (Fiasp FlexTouch) 100 UNIT/ML solution pen- injector 30 mL 0 Sig: Inject 5-10 Units under the skin into the appropriate area as directed 3 (Three) Times a Day With Meals. TO REPLACE NOVOLOG Last office visit with prescribing clinician: 08/25/2024 Next office visit with prescribing clinician: 01/12/2025 Geri Pope 01/07/25, 16:04 EDT * Telephone Encounter - KhanAna castillo - 01/07/2025 1:55 PM EDT PATIENT IS CALLING STATING FIASP NEEDS PRIOR AUTH. STATES PHARMACY IS SENDING US INFORMATION TO GETPRIOR AUTH. SHE IS CALLING TO CHECK STATUS. PHONE NUMBER IS [phone]. IF ITS NOT NEEDING PRIOR AUTH THEN PHARMACY MAY NEED A NEW PRESCRIPTION FROM US. PATIENT WASN'T REAL SURE WHY THIS NEEDS PRIOR AUTH. documented in this encounter Plan of Treatment Upcoming Encounters Date Type Department Care Team (Late st Contact Info) Description 05/18/2025 2:00 PM EST Office Visit [facility] [address] [address] Rafaela Lucas PA [address] [address] documented as of this encounter Visit Diagnoses Not on filedocumented in this encounter Care Teams Belt Puncher Relationship Specialty Start Date End Date Girma Gonzalez DO [address] [place] [address] PCP - General Internal Medicine 08/25/24 documented as of this encounter
--- OUTSIDE RECORDS SUMMARY | 2025-01-22 14:15 | XMS_ITS | Encounter Summary ---
Author Organization [facility] Address [address] [place] [address] Care Team Providers Care Second Officer Name Role Phone Girma Gonzalez DO Primary Care Provider + Encounter Details Date Type Department Care Team (Late Contact Info) Description 01/13/2025 Results Follow-Up [facility]CR[facility] [address] [phone] Rafaela Lucas PA [address] [address] Social History Tobacco Use Types Packs/Day [...] Encounters Date Type Department Care Team (Late Contact Info) Description 05/18/2025 2:00 PM EST Office Visit [facility] [address] [facility] [address] [place] [address] Rafaela Lucas PA [address] [address] documented as of this encounter Visit Diagnoses Not on filedocumented in this encounter Care Teams Second Officer Relationship Specialty Start Date End Date Girma Gonzalez DO [address] [place] [address] PCP - General Internal Medicine 08/25/24 documented as of this encounter
--- OUTSIDE RECORDS SUMMARY | 2025-01-22 14:15 | XMS_ITS | Clinical Summary ---
Author Organization [facility] Address [address] [place] [address] Care Team Providers Care Hook Tender Name Role Phone Girma Gonzalez Primary Care Provider + Allergies Active Allergy Reactions Criticality Noted Date Comments Penicillins Other (See Comments) High 05/09/2020 Allergy test Medications esomeprazole (nexIUM) 40 MG capsule Take 1 capsule by mouth Every Morning Before Breakfast. Active hydroCHLOROth iazide 25 MG tablet Take 1 tablet by mouth Daily. 90 tablet 1 04/27/20 24 Active losartan (COZAAR) 100 MG tablet Take 1 tablet by mouth Daily. 90 tablet 2 04/27/20 24 Active Continuous Glucose Sensor (FreeStyle Suhail 2 Plus Sensor) [facility] Use 1 each See Admin Instructions. Change every 15 days 6 each 3 07/13/19 25 Active amLODIPine (NORVASC) 5 MG tablet Take 1 tablet by mouth Daily. Active Insulin Glargine (BASAGLAR KWIKPEN) 100 UNIT/ML injection pen Inject 20 Units under the skin into the appropriate area as directed Daily. 15 mL 5 08/26/19 25 Active levocetirizin e (XYZAL) 5 MG tablet Take 1 tablet by mouth Daily. 11/21/19 25 Active Insulin Aspart, w/Niacinamide , (Fiasp FlexTouch) 100 UNIT/ML solution pen-injector Inject 5-10 Units under the skin into the appropriate area as directed 3 (Three) Times a Day With Meals. TO REPLACE NOVOLOG 30 mL 3 01/13/20 25 Active levothyroxine (SYNTHROID, LEVOTHROID) 112 MCG tablet Take 1 tablet by mouth Every Morning. NEW DOSE 90 tablet 1 01/14/20 25 Active Insulin Aspart, w/Niacinamide , (Fiasp FlexTouch) 100 UNIT/ML solution pen-injector Inject 5-10 Units under the skin into the appropriate area as directed 3 (Three) Times a Day With Meals. TO REPLACE NOVOLOG 30 mL 2 04/27/20 24 025 Discontinued(R eorder) levothyroxine (SYNTHROID, LEVOTHROID) 125 MCG tablet Take 1 tablet by mouth Every Morning. NEW DOSE INSTRUCTIONS 90 tablet 1 08/26/19 025 Discontinued Insulin Aspart, w/Niacinamide , (Fiasp FlexTouch) 100 UNIT/ML solution pen-injector Inject 5-10 Units under the skin into the appropriate area as directed 3 (Three) Times a Day With Meals. TO REPLACE NOVOLOG 30 mL 1 01/08/20 025 Discontinued(R eorder) Active Problems Problem Noted Date Diagnosed Date Type 2 diabetes mellitus wit h hyperglycemia, with long-term current use of insulin 05/09/2020 Assessment & Plan (11/22/2022 2:32 PM EDT): Diabetes is worsening. A1c increased to 8.8% today. Reviewed Suhail CGM data and discussed with patient. Sensor glucose average 225 for the past 2 weeks, but 32% time in range 70-180, 1% low 54-69, 0% very low <54, 38% high >250. Postprandial glycemic excursions, some over 350. Advised to take Novolog before meal. Encouraged more consistent meals. Encouraged nutritious dietary choices, moderation of carbohydrates, regular physical activity. Insulin doses as listed below. Diabetes will be reassessed in 3 months. Patient Instructions Tresiba 18 units daily. Novolog 4-5 units with meals plus correction 1 unit per 50 over 150 if glucose is high before meal. Correction insulin (add to mealtime insulin and every 4 hours as needed for hyperglycemia): 0 units Less than 150 1 units 150 - 199 2 units 200 - 249 3 units 250 - 299 4 units 300 - 349 5 units 350 - 399 6 units Over 400 Postsurgical hypothyroidism Assessment & Plan (11/22/2022 2:25 PM EDT): Euthyroid on recent labs. Continue levothyroxine 125 mcg daily. Hypertension Assessment & Plan (11/22/2022 2:28 PM EDT): BP above goal in office today. Home BP readings are lower. Continue to monitor. Dietary sodium restriction. Weight loss. Regular aerobic exercise. Continue current medications. Blood pressure will be reassessed in 3 months. Encounters Date Type Department Care Team Description 01/13/2025 Refill [facility] [address] [place] [address] Rafaela Lucas PA 01/13/2025 Results Follow-Up [facility] [address] [place] [address] Rafaela Lucas PA 01/12/2025 3:30 PM EDT Office Visit [facility] [address] [place] [address] Rafaela Lucas PA Type 2 diabetes mellitus with hyperglycemia, with long-term current use of insulin (Primary Dx); Postsurgical hypothyroidism; Primary hypertension 01/12/2025 Travel 01/08/2025 Prior Authorization [facility] [address] [place] [address] Rafaela Lucas PA Fiasp Approval 01/07/2025 Refill [facility] [address] [place] [address] Rafaela Lucas PA 11/04/2024 Refill [facility] [address] [place] [address] Rafaela Lucas PA from Last 3 Months Family History Medical History Relation Name Comments Diabetes Brother Heart disease Brother Heart disease Father Diabetes Mother Heart disease Mother Thyroid disease Mother Diabetes Sister Heart disease Sister Thyroid disease Sister Relation Name Status Comments Brother Father Mother Sister Alive Social History Tobacco Use Types Packs/Day Years [...] Pulse 87 01/12/2025 3:32 PM EDT Temperature 36.6 C (97.8 F) 05/09/2020 10:14 AM EST Respiratory Rate - - Oxygen Saturation 99% 01/12/2025 3:32 PM EDT Inhaled Oxygen Concentration - - Weight 59.1 kg (130 lb 3.2 oz) 01/12/2025 3:32 P M EDT Height 162.6 cm (5' 4.02 ) 01/12/2025 3:32 PM ED T Body Mass Index 22.34 01/12/2025 3:32 PM EDT Plan of Treatment Upcoming Encounters Date Type Department Care Team (Late st Contact Info) Description 05/18/2025 2:00 PM EST Office Visit [facility] [address] [address] Rafaela Lucas PA [address] [address] Health Maintenance Due Date Last Done Comments DXA SCAN 1945 DIABETIC EYE EXAM 11/23/1955 Pneumococcal Vaccine 50+ (1 of 2 - PCV) 11/23/1966 TDAP/TD VACCINES (1 - Tdap) 11/23/1966 ZOSTER VACCINE (1 of 2) 11/23/1997 ANNUAL WELLNESS VISIT 04/11/2020 HEPATITIS C SCREENING 04/11/2020 RSV Vaccine - Adults (1 - 1- dose 75+ series) 11/23/2022 COVID-19 Vaccine ( - 2023-2 5 season) 2024 DIABETIC FOOT EXAM 03/25/2024 03/25/2023, 1 , 03/25/2023, Additional history exists INFLUENZA VACCINE 03/24/2025 02/13/2021, 04/11/2018 HEMOGLOBIN A1C 07/15/2025 01/12/2025, 02/0 09/2024, 04/27/2024, Additional history exists URINE MICROALBUMIN-CREATININ E RATIO (uACR) 01/13/2026 01/13/2025, 05/09/2020 Procedures Procedure Name Priority Date/Time Associated Diagnosis [...] hyperglycemia, with long-term current use of insulin MICROALBUMIN / CREATININE URINE RATIO Routine 05/09/2020 11:53 AM EST Diabetes mellitus type 2, uncontrolled, with complications ([facility]) from Last 3 Months or Most Recently Relevant to Health Maintenance Results * Microalbumin / Creatinine Urine Ratio - Urine, Clean Catch (01/12/2025 4:17 PM EDT) Only the most recent of2 resultswithin the time period is included. Microalbumin/C reatinine Ratio 01/13/2025 2:39 AM EDT [facility] Comment:Unable to calculate Creatinine, Urine 11.4 mg/dL 01/13/2025 2:39 AM EDT [facility] Microalbumin, Urine <1.2 mg/dL 01/13/2025 2:39 AM EDT [facility] Urine Urine specimen obtained by clean catch procedure / Unknown Collection / Unknown 01/12/2025 4:17 PM EDT 01/12/2025 4:17 PM EDT Rafaela RUBIN URINE ORDERABLES Final Re sult Performing Organization Address [facility] Co de Phone Number [facility]
[address] [place] [address], [place] [phone] * (ABNORMAL) TSH (01/12/2025 4:17 PM EDT) TSH 0.199(L) 0.270 - 4.200 uIU/mL 01/13/2025 2:56 AM EDT [facility] Blood Structure of left upper limb / Unknown Venipuncture / Unknown 01/12/2025 4:17 PM EDT 01/12/2025 4:17 PM EDT Rafaela RUBIN LAB BLOOD ORDERABLES Laura l Result Performing Organization Address [facility] de Phone Number [facility]
[address] [place] [address], [place] [phone] * (ABNORMAL) T4, Free (01/12/2025 4:17 PM EDT) Free T4 1.76(H) 0.92 - 1.68 ng/dL 01/13/2025 2:56 AM EDT [facility] Blood Structure of left upper limb / Unknown Venipuncture / Unknown 01/12/2025 4:17 PM EDT 01/12/2025 4:17 PM EDT Rafaela RUBIN LAB BLOOD ORDERABLES Laura l Result Performing Organization Address [facility] Co de Phone Number [facility]
[address] [place] [phone], * (ABNORMAL) POC Glycosylated Hemoglobin (Hb A1C) (01/12/2025 3:49 PM EDT) Hemoglobin A1C 7.0(A) 4.5 - 5.7 % [facility] Lot Number [id number] [facility] Expiration Date 09/04/2026 [facility] Blood 01/12/2025 3:49 PM EDT Rafaela RUBIN POINT OF CARE TEST ORDERA BLES Final Result [facility]
[address] [place] [address], [place] [phone] * (ABNORMAL) POC Glucose, Blood (01/12/2025 3:48 PM EDT) Glucose 161(A) 70 - 130 mg/dL Lot Number [id number] Expiration Date 07/27/2025 Blood 01/12/2025 3:48 PM EDT Rafalea RUBIN POINT OF CARE TEST ORDERA BLES Final Result from Last 3 Months or Most Recently Relevant to Health Maintenance Insurance MEDICARE A & B Member Subscriber Plan / Payer (Ef fective 2012-Present) Name:Lizzie Peres Member ID:[id number] Relation to Subscriber:Self Name:Lizzie Peres Subscriber ID:[id number] Payer ID:[id number] Group ID:Not on file Type:Not on file Address: [address] [employer] Care Teams Hook Tender Relationship Specialty Start Date End Date Girma Gonzalez DO [address] [place] [address] PCP - General Internal Medicine 08/25/24
[2025-01-22 14:28] LABS: Troponin I < 0.01 ng/ml (0.00-0.034)
[2025-01-22 14:32] LABS: Hematocrit 32.9 % (37.0-47.0); Hemoglobin 10.7 g/dL (12.2-16.2); Immature Granulocytes % 0.5 %; Mean Corpuscular HGB Conc 32.5 g/dL (31.8-35.4); Mean Corpuscular Hemoglobin 29.9 pg (27.0-31.2); Mean Corpuscular Volume 91.9 fl (81-99); Nucleated Red Blood Cells % 0 %; Platelet Count 190 K/mm3 (142-424); Red Blood Count 3.58 M/mm3 (4.20-5.40); Red Cell Distribution Width-SD 48.4 fL; White Blood Count 7.9 K/mm3 (4.8-10.8)
[2025-01-22 14:41] LABS: Activated Partial Thrombo Time 23.6 seconds (22.8-30.6); INR 0.97 (0.9-1.1); Prothrombin Time 10.8 seconds (10.1-12.5)
[2025-01-22] MEDS: IOPAMIDOL-370 (76%);100ML BOTTLE 80 ML IV (14:48)
[2025-01-22] MEDS: 0.9 % SODIUM CHLORIDE 50 ML VIAL IV (14:48)
[2025-01-22] MEDS: SODIUM CHLORIDE 0.9% 10ML SYR (RAD ONLY) 10 ML IV (14:48)
--- NOTE | 2025-01-22 15:44 | PC.NURSE ---
ROUNDED ON PT, CALL LIGHT WITHIN REACH. NO NEEDS AT THIS TIME
--- NOTE | 2025-01-22 16:11 | PC.NURSE ---
C-SPINE CLEARED BY DR ROSS, C COLLAR REMOVED
--- NOTE | 2025-01-22 17:13 | PC.NURSE ---
DR CASTELLANO AT BEDSIDE
--- NOTE | 2025-01-22 17:32 | PC.NURSE ---
INCENTIVE SPIROMETER GIVEN AND PROPER RETURN DEMONSTRATION OBSERVED
[2025-01-22 17:49] VITALS: BP 144/87; PULSE 78; RESP 18; TEMP 36.7; O2SAT 97
== END 2025-01-22 18:23 | disposition home or self-care (01) ==
PROVIDERS: Emergency Provider Student in an Organized Health Care Education/Training Program; PCP Internal Medicine
DX: M79.602 Pain in left arm (principal); S22.42XA Multiple fractures of ribs, left side, initial encounter for closed fracture; M25.561 Pain in right knee; M25.571 Pain in right ankle and joints of right foot; N83.291 Other ovarian cyst, right side; M51.369 Other intervertebral disc degeneration, lumbar region without mention of lumbar back pain or lower extremity pain; M51.34 Other intervertebral disc degeneration, thoracic region; M50.30 Other cervical disc degeneration, unspecified cervical region; V49.40XA Driver injured in collision with unspecified motor vehicles in traffic accident, initial encounter
CPT/HCPCS: 70450; 70486; 71045; 71275; 72125; 72128; 72131; 72170; 73030; 73060; 73120; 73600; 74174; 80053; 82550; 83690; 84484; 85025; 85610; 85730; 99291; G0390; Q9967

== ENCOUNTER 2025-06-09 13:07 | Observation (INO) | payer MEDICARE, SELFPAY ==
[2025-06-09] VITALS (15 sets, daily range): BP systolic 110–154; BP diastolic 61–86; PULSE 68–105; RESP 12–20; TEMP 36.6–36.8; O2SAT 93–100; BMI 34.2; BMI 24.9
--- NOTE | 2025-06-09 13:12 | ED_ITS ---
<Statement entered by Russell Duke MD - 06/11/25 16:28> Russell Duke MD: I was consulted by the SHLOMO, and we discussed the complexity of the problems being addressed. I approve the treatment and management plan for this patient's care in the emergency department, thus performing a substantive portion of the medical decision making. Discharge Plan Disposition Patient Disposition: Admitted Condition: Good Prescriptions Prescriptions: No Action Fiasp FlexTouch U-100 Insulin 100 unit/mL (3 mL) insulin pen SQ Patient Comments: INJECT 5-10 UNITS SUBCUTANEOUSLY THREE TIMES DAILY with meals insulin degludec [Tresiba FlexTouch U-100] 100 unit/mL (3 mL) insulin pen SQ Patient Comments: INJECT 20 UNITS SUBCUTANEOUSLY EVERY DAY DIRECTED losartan 100 mg tablet 100 mg PO DAILY Qty: 30 2RF levothyroxine 112 mcg tablet 112 mcg PO Patient Comments: TAKE ONE TABLET BY MOUTH EVERY MORNING insulin glargine [Basaglar KwikPen U-100 Insulin] 100 unit/mL (3 mL) insulin pen 1 unit SQ Patient Comments: INJECT 20 units SUBCUTANEOUSLY as directed INTO THE APPROPRIATE AREA daily methocarbamol 500 mg tablet 500 mg PO TID PRN (Reason: muscle spasm) Qty: 30 0RF hydrochlorothiazide 25 mg tablet 25 mg PO DAILY levocetirizine 5 mg tablet 5 mg PO DAILY Qty: 30 2RF ondansetron 4 mg tablet,disintegrating 8 mg PO Q8H PRN (Reason: nausea and vomiting) Qty: 30 1RF Rx Instructions: 1-2 tabs as needed Referrals Follow up/Referrals: Girma Gonzalez DO [Primary Care Provider, Family Practice] - See instructions Clinical Impressions Clinical Impression: Acute hemorrhagic cystitis Instructions Patient Instructions: DI for Urinary Tract Infection (UTI), DI for Urinary Tract Infection in Children Print Language Print Language: Chinese Discharge ED Provider: Russell Duke General Adult HPI General Chief complaint: Urogenital-Female Stated complaint: blood in urine, stomach pain, weakness Time Seen by Provider: 06/09/25 13:11 History of Present Illness HPI narrative: 79-year-old female presents emergency department with complaints of hematuria since yesterday. She reports that her symptoms started after taking an aspirin for pain control. She denies diarrhea but states she has had vomiting chronically. She also denies fevers. Related Data Home Medications ?Medication ?Instructions ?Recorded ?Confirmed hydrochlorothiazide 25 mg tablet 25 mg PO DAILY Fluid 12/19/20 02/16/25 insulin aspart SQ 07/28/24 02/16/25 (niacinamide)(U-100) 100 unit/mL(3 mL) subcutaneous pen (Fiasp FlexTouch U-100 Insulin) insulin degludec 100 unit/mL (3 unit SQ 07/28/2402/16 mL) subcutaneous pen (Tresiba FlexTouch U-100 insulin) insulin glargine 100 unit/mL (3 1 unit SQ 02/16/25 mL) subcutaneous pen (Basaglar KwikPen U-100 Insulin) levothyroxine 112 mcg tablet 112 mcg PO 02/16/2502/16 Previous Rx's ?Medication ?Instructions ?Recorded ondansetron 4 mg disintegrating 8 mg (2 x 4 mg) PO Q8H PRN nausea 08/11/24 tablet and vomiting #30 tabs levocetirizine 5 mg tablet 5 mg PO DAILY #30 tabs 05 losartan 100 mg tablet 100 mg PO DAILY #30 tabs methocarbamol 500 mg tablet 500 mg PO TID PRN muscle s pasm #30 02/16/25 tabs Allergies Allergy/AdvReac Type Severity Reaction Status Date / Time lisinopril (LISINOPRIL) Allergy Unknown VISION Verified 02/16/25 13:10 DISTURBANCES-DIZZY Penicillins (PENICILLINS) Allergy Unknown REACTED ON Verified 02/16/25 13:10 ALLERGY TESTING cedar tree pollen Allergy Uncoded 02/16/25 13:10 [facility] Disclaimer: The information contained in this section may have been updated after the patient was seen, as this information can be updated by other users. Medical History Acute hemorrhoid Hx of completed stroke Hx of neck injury Degenerative disc disease Diabetes Hypertension Surgical History H/O hernia repair History of elbow surgery LEFT ELBOW Social History Smoking Status: Never smoker second hand exposure: No alcohol intake: never counseling provided: none substance use type: denies use current occupational status: retired Travel in the last 8 weeks?: None housing: house current occupational exposures/hazards: No caffeine: Yes Have you lived/traveled outside US in past 30 days?: No Contact w/someone who lives/traveled outside US past 30 days?: No Exposure to someone with infectious disease in past 14 days?: No Do you have a fever (greater than 100.4 F or 38 C)?: No Have you tested positive for COVID-19?: No Exposed to someone with COVID-19 in past 14 days?: No Do you have a sore throat?: No Do you have a cough?: No Do you have any weakness?: No Do you have any diarrhea?: No Are you experiencing any unusual bleeding?: No Do you have any muscle aches/pain?: No Do you have any abdominal pain?: No Are you experiencing loss of taste or smell?: No Other Medical History Have you received the Flu Vaccine for this season: Yes Have you received the Pneumonia Vaccine: No ROS Obtained: Yes other Constitutional Constitutional: Reports weakness Genitourinary Female Genitourinary: Reports hematuria Neurologic Neurologic: Reports weakness Physical Exam Narrative Physical exam: General: Awake, aware, in no acute distress HEENT: Normocephalic, no evidence of trauma CV: RRR, no murmurs, rubs, or gallops. Patient with 2+ pitting edema to bilateral lower extremities. Pulm: CTA bilaterally with no rhonchi, rales, wheezes ABD: Nontender, no swelling, guarding, or rebound tenderness. Patient with mild distention in the lower portion of her abdomen. Psych, appropriate mood and affect Genitourinary: Patient has several large blood clots within her depends when nursing staff was attempting to In-N-Out catheter for urine sample. Initially were unable to determine if blood was coming from her vagina or urethra however once nursing staff placed the In-N-Out cath gross hematuria was present. General General appearance: alert Respiratory Respiratory exam: Present normal lung sounds bilaterally Cardiovascular Cardiovascular exam: Present regular rate Neurological Exam Neurological exam: Present alert Medical Decision Making Medical Records Screening: Per USPSTF and CDC recommendations, given the prevalence of disease in our region, it is our hospital?s policy to screen for HIV and viral Hepatitis for all patients aged 18 and over and those with ongoing risk factors. Charles Inquiry Pt receiving controlled substance: No Vital Signs: 12/17/25 13:10 06/09/25 13:15 06/09/25 13:30 Temperature 97.9 F Temperature Source Oral Pulse Rate 104 H 96 H Pulse Rate [Left Radial] 103 H Respiratory Rate 20 Blood Pressure 137/86 148/83 H Blood Pressure [Right Arm] 137/86 Blood Pressure Mean [Right Arm] 103 02 Sat by Pulse Oximetry 99 97 100 Oxygen Delivery Method Room Air 06/09/25 14:00 06/09/25 14:30 06/09/25 15:00 Temperature Temperature Source Pulse Rate 88 83 105 H Pulse Rate [Left Radial] Respiratory Rate Blood Pressure 148/80 H 148/70 H 133/72 Blood Pressure [Right Arm] Blood Pressure Mean [Right Arm] 02 Sat by Pulse Oximetry 100 99 97 Oxygen Delivery Method 06/09/25 15:30 06/09/25 16:13 06/09/25 16:30 Temperature Temperature Source Pulse Rate 86 86 88 Pulse Rate [Left Radial] Respiratory Rate 12 13 14 Blood Pressure 150/81 H 153/85 H Blood Pressure [Right Arm] Blood Pressure Mean [Right Arm] 02 Sat by Pulse Oximetry 98 98 98 Oxygen Delivery Method Room Air 06/09/25 17:00 Temperature Temperature Source Pulse Rate 87 Pulse Rate [Left Radial] Respiratory Rate 15 Blood Pressure 145/73 H Blood Pressure [Right Arm] Blood Pressure Mean [Right Arm] 02 Sat by Pulse Oximetry 94 L Oxygen Delivery Method Lab Data Lab Results 06/09/25 13:26: WBC 7.1, RBC 3.61 L, Hgb 10.9 L, Hct 32.7 L, MCV 90.6, MCH 30.2, MCHC 33.3, RDW 14.2, Plt Count 230, MPV 9.8, Neut % (Auto) 68.0, Lymph % (Auto) 24.2, Eaton % (Auto) 6.1, Eos % (Auto) 0.7, Baso % (Auto) 0.7, Neut # (Auto) 4.8, Lymph # (Auto) 1.7, Eaton # (Auto) 0.4, Eos # (Auto) 0.1, Baso # (Auto) 0.1, PT 10.4, INR 0.93, APTT 26.0, Sodium 131 L, Potassium 3.5, Chloride 98, Carbon Dioxide 31 H, Anion Gap 5.5, BUN 28 H, Creatinine 0.80, Estimated Creat Clear 59, Estimated GFR 70, Est GFR ( Amer) 84, Glucose 194 H, Calcium 8.7, Magnesium 1.6, Total Bilirubin 0.4, AST 44 H, ALT 31, Alkaline Phosphatase 60, Troponin I < 0.01, NT-Pro-B Natriuret Pep 187, Total Protein 6.1 L, Albumin 3.8, Globulin 2.3, Albumin/Globulin Ratio 1.7, Lipase 45, Urine Color Red, Urine Appearance Cloudy, Urine pH 7.5, Ur Specific Hollins 1.020, Urine Protein 2+ A, Urine Glucose (UA) Negative, Urine Ketones Trace, Urine Blood 3+ A, Urine Nitrate Positive A, Urine Bilirubin 2+ A, Urine Urobilinogen 2.0, Ur Leukocyte Esterase 1+ A, Urine RBC Tntc, Urine WBC Tntc, Ur Squamous Epith Cells None, Urine Bacteria 4+ 06/09/25 13:26 06/09/25 13:26 Orders (Tests/Meds): ED MEDICATIONS Generic Name Dose Route Start Last Admin Trade Name Freq PRN Reason Stop Dose Admin Sodium Chloride 3,000 mls @ 999 mls/hr 06/09/25 15:42 Sodium Chloride 0.9% Irrigation 3,000ml Bag IR 07/09/25 15:41 NEEDED PRN CONTINUOUS BLADDER IRRIGATION Discontinued Medications Generic Name Dose Route Start Last Admin Trade Name Freq PRN Reason Stop Dose Admin Sodium Chloride 1,000 mls @ 999 mls/hr 06/09/25 13:15 06/09/25 14:50 Sod Chlor 0.9% 1000ml Bag IV 06/09/25 14:15 Infused .Q1H1M ONE Infusion Ceftriaxone Sodium 1 gm/ 50 mls @ 100 mls/hr 06/09/25 14:37 06/09/25 15:28 Sodium Chloride IV 06/09/25 15:06 Infused Q24H ONE Infusion Iopamidol 75 ml 06/09/25 14:13 06/09/25 14:14 Iopamidol-370 (76%);100ml Bottle IV 06/09/25 14:14 75 ml ONCE ONE Administration Sodium Chloride 10 ml 06/09/25 14:13 06/09/25 14:14 Sodium Chloride 0.9% 10ml Syr (Rad Only) IV 06/09/25 14:14 10 ml ONCE ONE Administration ORDERS Category Date Time Status CT abdomen pelvis w con Stat Cat Scan 06/09/25 13:35 Completed Chest XR -- portable [XR chest portable] Stat Exams 06/09/25 13:35 Completed BNP [NT Pro Brain Natriuretic Pep.] Stat Lab 06/09/25 13:26 Completed CBC w/Auto Diff [Complete Blood Count Auto Diff] Stat Lab 06/09/25 13:26 Completed CMP [Comprehensive Metabolic Panel] Stat Lab 06/09/25 13:26 Completed Lipase Stat Lab 06/09/25 13:26 Completed Magnesium Stat Lab 06/09/25 13:26 Completed PT/PTT Stat Lab 06/09/25 13:26 Completed Troponin I Q3H Lab 06/09/25 16:45 Received Troponin I Q3H Lab 06/09/25 19:45 Ordered Troponin I Stat Lab 06/09/25 13:26 Completed Urinalysis and Microscopic Stat Lab 06/09/25 13:26 Completed Urine Culture Stat Micro 06/09/25 13:26 Received Medical Decision Narrative: Initial impression of presenting illness: 79-year-old female presents emergency department with complaints of hematuria that started yesterday after taking aspirin for pain relief. She reports that she has vomiting chronically but no diarrhea or fevers. She denies abdominal pain. She also reports generalized weakness. Differential diagnosis includes but is not limited to: Urinary tract infection, pyelonephritis, kidney stone, malignancy, anemia, dehydration, electrolyte abnormality Patient arrives hemodynamically stable, afebrile, without respiratory distress with vital signs interpreted by myself. Initial physical exam reveals blood clots that were present within patient's depends when nursing staff was attempting to In-N-Out catheter. I was called to bedside to examine patient's genitalia. Initially was difficult to tell where the bleeding was coming from however once nursing staff placed the In-N-Out cath gross hematuria was present. Patient denies tenderness on palpation of abdomen however her lower abdomen does feel distended. Patient has 2+ pitting edema to bilateral lower extremities. Rest of exam is unremarkable Initial diagnostic plan: Laboratory workup including chest x-ray, CT of abdomen pelvis with IV contrast, urinalysis, normal saline bolus for hydration Results from initial plan were reviewed and interpreted by myself, pertinent positives include: Laboratory studies were nonactionable. Patient's urinalysis was positive for nitrates as well as 4+ bacteria and too numerous to count red blood cells and white blood cells. Patient's postvoid bladder scan shows [address] of abdomen pelvis with IV contrast shows no renal mass or upper urinary tract obstruction. There is a distended urinary bladder with mild bladder floor prolapse. There is an enlarged right ovarian cyst as well as a massive hiatal hernia per the radiologist. Chest x-ray was also nonactionable. Interventions in the ED: Patient was given normal saline bolus for hydration. He was also given Rocephin for treatment of her urinary tract infection. A three-way Ly catheter was inserted with continuous bladder irrigation. We will monitor patient's urine with the continuous bladder irrigation to see if we are able to get it cleared up enough that we are able to discharge her home versus admitting her into the hospital for continuation of bladder irrigation and IV antibiotics. Patient's urine was easily cleared with CBI however once we clamped off the infusion her urine quickly became blood-tinged with small blood clots. Spoke with patient about my concerns that she could possibly develop a urinary obstruction with the amount of bleeding that she is having. She was agreeable for admission. I then spoke to the hospitalist regarding patient's presenting complaint and workup findings. He was agreeable to admit patient for CBI for hemorrhagic cystitis. Critical Care Critical Care Time Critical Care Time: No
[2025-06-09 13:34] LABS: Microscopic, Urine URINE MICROSCOPIC (MICROSCOPIC)
[2025-06-09] MEDS: 0.9 % SODIUM CHLORIDE 1000ML 1,000 ML 999 ML IV (13:34)
--- NOTE | 2025-06-09 13:35 | XR_ITS ---
FINAL REPORT CLINICAL HISTORY: edema COMPARISON: None FINDINGS: A single frontal view of the chest was obtained. There is elevation of the left diaphragm. No acute pulmonary opacity is present. There is no evidence of effusion or pneumothorax. Mediastinum is unremarkable. Heart size is normal. IMPRESSION: No acute abnormality. Reviewed, Interpreted and Dictated by Rosanna Young MD Transcribed by Yoselin Swenson Authenticated and [facility][1]
--- NOTE | 2025-06-09 13:35 | CT_ITS ---
FINAL REPORT TECHNIQUE: After the administration of intravenous contrast, axial images were obtained through the abdomen and pelvis by computed tomography. This study was performed with technique to keep radiation doses as low as reasonably achievable, (ALARA). Individualized dose reduction techniques using automated exposure control or adjustment of the MA and/or KV according to the patient's size were employed. CLINICAL HISTORY: hematuria FINDINGS: Abdomen: There is a massive hiatal hernia within the left thorax. The liver is normal in size and attenuation. The spleen is unremarkable. Gallbladder is present. The adrenals are normal. The pancreas is unremarkable. There is mild left renal scarring. The aorta is normal in caliber. There is no free fluid or adenopathy. There is moderate, diffuse fecal impaction. Pelvis: There is moderate fecal impaction. A dominant cyst is seen arising from the right ovary measuring 32 mm. Urinary bladder is distended. Uterus is retroverted. Appendix is not visualized. There is mild urinary bladder prolapse. IMPRESSION: No renal mass or upper urinary tract obstruction. Distended urinary bladder with mild bladder floor prolapse. Enlarged right ovarian cyst, favor benign. Consider ultrasound or CT in 3 months for further evaluation. Massive hiatal hernia. Reviewed, Interpreted and Dictated by Rosanna Young MD Transcribed by Haritha Mcwilliams Authenticated and [facility]
[2025-06-09 13:37] LABS: Hematocrit 32.7 % (37.0-47.0); Hemoglobin 10.9 g/dL (12.2-16.2); Immature Granulocytes % 0.3 %; Mean Corpuscular HGB Conc 33.3 g/dL (31.8-35.4); Mean Corpuscular Hemoglobin 30.2 pg (27.0-31.2); Mean Corpuscular Volume 90.6 fl (81-99); Nucleated Red Blood Cells % 0 %; Platelet Count 230 K/mm3 (142-424); Red Blood Count 3.61 M/mm3 (4.20-5.40); Red Cell Distribution Width-SD 47.7 fL; White Blood Count 7.1 K/mm3 (4.8-10.8)
[2025-06-09 13:45] LABS: Albumin Level 3.8 g/dl (3.5-5.0); Chloride 98 mmol/L (98-107); Potassium 3.5 mmoL/L (3.5-5.1); Sodium 131 mmol/L (136-145)
[2025-06-09 13:48] LABS: Alanine Aminotransferase 31 U/L (12-78); Albumin/Globulin Ratio 1.7 (1.1-1.8); Alkaline Phosphatase 60 U/L (38-126); Anion Gap 5.5 mEq/L (5-15); Aspartate Amino Transferase 44 U/L (14-36); Bilirubin,Total 0.4 mg/dl (0.2-1.3); Blood Urea Nitrogen 28 mg/dl (7-17); Calcium 8.7 mg/dl (8.4-10.2); Carbon Dioxide 31 mmol/L (22.0-30.0); Creatinine Clearance Estimated 59 mL/min (50-200); Creatinine,Serum 0.80 mg/dl (0.52-1.04); Estimated Glomerular Filt Rate 70 ml/min (>60); GFR (African American) 84 ML/MIN (>60); Globulin 2.3 g/dL (1.3-3.2); Glucose 194 mg/dl (74-100); Lipase 45 U/L (23-300); Magnesium 1.6 mg/dl (1.6-2.3); Total Protein,Serum 6.1 g/dl (6.3-8.2)
[2025-06-09 13:52] LABS: Activated Partial Thrombo Time 26.0 seconds (22.8-30.6); INR 0.93 (0.9-1.1); Prothrombin Time 10.4 seconds (10.1-12.5)
[2025-06-09 13:57] LABS: NT Pro Brain Natriuretic Pep. 187 pg/mL (0-450)
[2025-06-09 14:06] LABS: Troponin I < 0.01 ng/ml (0.00-0.034)
--- NOTE | 2025-06-09 14:09 | ECG_ITS ---
APPROVED REPORT Exam: Resting ECG HR:85 bpm ECG Measurements Heart Rate 85 AXES QRSd 138 QRS -33 QT 382 T 0 QTc 425 Conclusion UNCERTAIN REGULAR RHYTHM LEFT AXIS DEVIATION [QRS AXIS < -30] INTRAVENTRICULAR CONDUCTION DELAY [130+ ms QRS DURATION] POSSIBLE ANTEROSEPTAL MYOCARDIAL INFARCTION , OF INDETERMINATE AGE [30 ms Q WAVE IN V1-V4] ABNORMAL ECG UNCONFIRMED REPORT Normal sinus rhythm. No STEMI Electronically signed by : JHONNY ROSS, 06/09/2025 14:56:51
[2025-06-09] MEDS: IOPAMIDOL-370 (76%);100ML BOTTLE 75 ML IV (14:14)
[2025-06-09] MEDS: SODIUM CHLORIDE 0.9% 10ML SYR (RAD ONLY) 10 ML IV (14:14)
--- OUTSIDE RECORDS SUMMARY | 2025-06-09 14:18 | XMS_ITS | Encounter Summary ---
Author Organization [facility] Address [address] [place] [address] Care Team Providers Care Municipal Engineer Name Role Phone Girma Gonzalez DO Primary Care Provider + Reason for Visit * Reason Comments Med Refill Encounter Details Date Type Department Care Team (Late st Contact Info) Description 05/11/2025 Refill [facility] [address] [place] [id number] Rafaela Lucas PA [address] [facility] [address] [place] [address] Social History Tobacco Use Types Packs/Day Years [...] encounter Miscellaneous Notes * Telephone Encounter - Nohemi Hernandes MA - 05/11/2025 1:44 PM EST Rx Refill Note Requested Prescriptions Pending Prescriptions Disp Refills losartan (COZAAR) 100 MG tablet [Pharmacy Med Name: losartan 100 mg tablet] 90 tablet 0 Sig: TAKE ONE TABLET BY MOUTH EVERY DAY Last office visit with prescribing clinician: 01/12/2025 Last telemedicine visit with prescribing clinician: Visit date not found Next office visit with prescribing clinician: 05/18/2025 Would you like a call back once the refill request has been completed: [] Yes [] No If the office needs to give you a call back, can they leave a voicemail: [] Yes [] No Nohemi Hernandes MA 05/11/25, 13:44 EST documented in this encounter Plan of Treatment Upcoming Encounters Date Type Department Care Team (Late st Contact Info) Description 09/16/2025 11:30 AM EDT Office Visit [facility] [address] [place] [address] Rafaela Lucas PA [address] [id number] documented as of this encounter Visit Diagnoses Not on filedocumented in this encounter Care Teams Municipal Engineer Relationship Specialty Start Date End Date Girma Gonzalez DO [address] [place] [address] PCP - General Internal Medicine 08/25/24 documented as of this encounter
--- OUTSIDE RECORDS SUMMARY | 2025-06-09 14:18 | XMS_ITS | Encounter Summary ---
Author Organization [facility] Address [address] [place] [address] Care Team Providers Care Barrel Rifler Operator Name Role Phone Girma Gonzalez DO Primary Care Provider + Reason for Visit * Reason Onset Date Comments OFFICE NOTES FROM 05/24/2025 Encounter Details Date Type Department Care Team (Late st Contact Info) Description 05/24/[address] [facility] [address] [phone] Rafaela Lucas PA [address] [phone] OFFICE NOTES FROM DECEMBER Social History Tobacco Use Types Packs/Day Years [...] encounter Miscellaneous Notes * Telephone Encounter - Franky Ward RegSched Rep - 05/24/2025 3:13 PM EST Caller: LARRY Relationship: [facility] Best call back number: [phone] What form or medical record are you requesting: OFFICE NOTES Who is requesting this form or medical record from you: [employer] How would you like to receive the form or medical records (pick-up, mail, fax): FAXED If fax, what is the fax number: [phone]* Timeframe paperwork needed: WITHIN A WEEK Additional notes: OFFICE NOTES FROM DECEMBER documented in this encounter Plan of Treatment Upcoming Encounters Date Type Department Care Team (Late st Contact Info) Description 09/16/2025 11:30 AM EDT Office Visit [facility] [address] [phone] Rafaela Lucas PA [address] [address] documented as of this encounter Visit Diagnoses Not on filedocumented in this encounter Care Teams Barrel Rifler Operator Relationship Specialty Start Date End Date Girma Gonzalez DO [address] [place] [address] PCP - General Internal Medicine 08/25/24 documented as of this encounter
--- OUTSIDE RECORDS SUMMARY | 2025-06-09 14:18 | XMS_ITS | Encounter Summary ---
Author Organization [facility] Address [address] [place] [address] Care Team Providers Care Academic Coach Name Role Phone Girma Gonzalez DO Primary Care Provider + Encounter Details Date Type Department Care Team (Late Contact Info) Description 01/13/2025 Results Follow-Up [facility] [address] [phone] Rafaela Lucas PA [address] [place] [phone] Social History Tobacco Use Types Packs/Day Years [...] Department Care Team (Late Contact Info) Description 09/16/2025 11:30 AM EDT Office Visit [facility] [address] [facility] [address] [place] [address] Rafaela Lucas PA [address] [address] documented as of this encounter Visit Diagnoses Not on filedocumented in this encounter Care Teams Academic Coach Relationship Specialty Start Date End Date Girma Gonzalez DO [address] [place] [id number] PCP - General Internal Medicine 08/25/24 documented as of this encounter
--- OUTSIDE RECORDS SUMMARY | 2025-06-09 14:18 | XMS_ITS | Clinical Summary ---
Author Organization [facility] Address [address] [place] [address] Care Team Providers Care Air Export Coordinator Name Role Phone Eros Cohn MD Primary Care Provider [phone] Family History Medical History Relation Name Comments [...] r (1 - 1-dose 75+ series) 11/23/2022 [id number] Vaccine (1 - 20 25-26 season) 2025 [facility]-Influenza Vaccine (#1) 2025 HPV Vaccines (No Doses Required) Completed [facility]-HIB Vaccines Aged Out No longer e [...] patient's age to complete this topic Insurance [facility] MEDICARE Care Teams Air Export Coordinator Relationship Specialty Start Date End Date Eros Cohn MD [address] [place] [address] PCP - General 11/04/20
--- OUTSIDE RECORDS SUMMARY | 2025-06-09 14:18 | XMS_ITS | Clinical Summary ---
Author Organization [facility] Address [address] [place] [address] Care Team Providers Care Department Store Manager Name Role Phone Girma Gonzalez Primary Care Provider + Allergies Active Allergy Reactions Criticality Noted Date Comments Penicillins Other (See Comments) High 05/09/2020 Allergy test Medications esomeprazole (nexIUM) 40 MG capsule Take 1 capsule by mouth Every Morning Before Breakfast. Active Continuous Glucose Sensor (OnRamp DigitalStyle Suhail 2 Plus Sensor) [facility] [place] 1 each See Admin Instructions. Change every 15 days 6 each 3 07/13/19 25 Active amLODIPine (NORVASC) 5 MG tablet Take 1 tablet by mouth Daily. Active Insulin Glargine (BASAGLAR KWIKPEN) 100 UNIT/ML injection pen Inject 20 Units under the skin into the appropriate area as directed Daily. 15 mL 5 08/26/19 25 Active levocetirizine (XYZAL) 5 MG tablet Take 1 tablet by mouth Daily. 11/21/19 25 Active Insulin Aspart, w/Niacinamide, (Fiasp FlexTouch) 100 UNIT/ML solution pen-injector Inject 5-10 Units under the skin into the appropriate area as directed 3 (Three) Times a Day With Meals. TO REPLACE NOVOLOG 30 mL 3 01/13/20 25 Active levothyroxine (SYNTHROID, LEVOTHROID) 112 MCG tablet Take 1 tablet by mouth Every Morning. NEW DOSE 90 tablet 1 01/14/20 25 Active hydroCHLOROthi azide 25 MG tablet TAKE ONE TABLET BY MOUTH EVERY DAY 90 tablet 1 02/03/20 25 Active losartan (COZAAR) 100 MG tablet TAKE ONE TABLET BY MOUTH EVERY DAY 90 tablet 05/11/20 25 Active losartan (COZAAR) 100 MG tablet Take 1 tablet by mouth Daily. 90 tablet 2 04/27/20 24 025 Discontinued Active Problems Problem Noted Date Diagnosed Date [...] Encounters Date Type Department Care Team Description 05/27/2025 Telephone [facility] [address] [place] [address] Rafaela Lucas PA PAPERWORK REQUEST 05/24/2025 Telephone [facility] [address] [place] [address] Rafaela Lucas PA OFFICE NOTES FROM 05/11/2025 Refill [facility] [address] [facility] [address] [place] [address] Rafaela Lucas PA from Last 3 Months [...] Description 09/16/2025 11:30 AM EDT Office Visit [facility] [address] [place] [address] Rafaela Lucas PA [address] [facility] [address] [place] [address] (work) Health Maintenance Due Date Last Done Comments DXA SCAN 1945 COVID-19 Vaccine (#1) 11/23/1952 DIABETIC EYE EXAM 11/23/1957 Pneumococcal Vaccine 50+ (1 of 2 - PCV) 11/23/1966 TDAP/TD VACCINES (1 - Tdap) 11/23/1966 ZOSTER VACCINE (1 of 2) 11/23/1997 ANNUAL WELLNESS VISIT 04/11/2020 HEPATITIS C SCREENING 04/11/2020 RSV Vaccine - Adults (1 - 1- dose 75+ series) 11/23/2022 DIABETIC FOOT EXAM 03/25/2024 03/25/2023, 1 , 03/25/2023, Additional history exists INFLUENZA VACCINE 01/22/2025 02/13/2021, 04/11/2018 HEMOGLOBIN A1C 07/15/2025 01/12/2025, 02/0 09/2024, 04/27/2024, Additional history exists URINE MICROALBUMIN-CREATININ E RATIO (uACR) 01/13/2026 01/13/2025, 05/09/2020 Procedures Procedure Name Priority Date/Time Associated Diagnosis Comments POCT GLYCOSYLATED HEMOGLOBIN (HGB A1C) Routine 01/12/2025 3:49 PM EDT Type 2 diabetes mellitus with hyperglycemia, with long-term current use of insulin MICROALBUMIN / CREATININE URINE RATIO Routine 05/09/2020 11:53 AM EST Diabetes mellitus type 2, uncontrolled, with complications ([facility]) from Last 3 Months or Most Recently Relevant to Health Maintenance Results * (ABNORMAL) POC Glycosylated Hemoglobin (Hb A1C) (01/12/2025 3:49 PM EDT) Hemoglobin A1C 7.0(A) 4.5 - 5.7 % [facility] Lot Number [id number] [facility] Expiration Date 09/04/2026 [facility] Blood 01/12/2025 3:49 PM EDT us Rafaela RUBIN POINT OF CARE TEST ORDERA BLES Final Result Performing Organization Address City/[facility]/ZIP Co de Phone Number [facility]
[address] [place] [address], * Microalbumin / Creatinine Urine Ratio - Urine, Clean Catch (05/09/2020 11:53 AM EST) Microalbumin/C reatinine Ratio 05/10/2020 12:42 AM EST [facility] Comment:Unable to calculate Creatinine, Urine 26.4 mg/dL 05/10/2020 12:42 AM EST [facility] Microalbumin, Urine <1.2 mg/dL 05/10/2020 12:42 AM EST [facility] Urine Urine specimen collection, clean catch / Unknown Collection / Unknown 05/09/2020 11:53 AM EST 05/09/2020 11:53 AM EST Ana Cristina RUBIN URINE ORDERABLES Final Result Performing Organization Address [facility] Co de Phone Number [facility]
[address] [place] [address], from Last 3 Months or Most Recently Relevant to Health Maintenance Insurance MEDICARE A & B Member Subscriber Plan / Payer (Ef fective 2012-Present) Name:Lizzie Peres Member ID:[id number] Relation to Subscriber:Self Name:Lizzie Peres Subscriber ID:[id number] Payer ID:[id number] Group ID:Not on file Type:Not on file Address: [facility] [id number] [place] [id number] [facility] [employer] Care Teams Department Store Manager Relationship Specialty Start Date End Date Girma Gonzalez DO [address] [place] [address] PCP - General Internal Medicine 08/25/24
--- OUTSIDE RECORDS SUMMARY | 2025-06-09 14:18 | XMS_ITS | Encounter Summary ---
Author Organization [facility] Address [address] [place] [address] Care Team Providers Care Fresh Foods Clerk Name Role Phone Girma Gonzalez DO Primary Care Provider + Reason for Visit * Reason Onset Date Comments PAPERWORK REQUEST 05/27/2025 Encounter Details Date Type Department Care Team (Late st Contact Info) Description 05/27/2025 Telephone [facility] [address] [address] Rafaela Lucas PA [address] [address] PAPERWORK REQUEST Social History Tobacco Use Types Packs/Day Years [...] Telephone Encounter - Sommer Muñoz MA - 05/27/2025 10:18 AM EST Faxed * Telephone Encounter - Jonnie Sinclair RegSched Rep - 05/27/2025 9:45 AM EST Caller: [facility] [employer] Relationship: DME SUPPLIER What form or medical record are you requesting: MOST RECENT OFFICE NOTES Who is requesting this form or medical record from you: DME SUPPLY How would you like to receive the form or medical records (pick-up, mail, fax): FAX If fax, what is the fax number: [phone] Timeframe paperwork needed: DOROTHY documented in this encounter Plan of Treatment Upcoming Encounters Date Type Department Care Team (Late st Contact Info) Description 09/16/2025 11:30 AM EDT Office Visit [facility] [address] [phone] Rafaela Lucas PA [address] [address] documented as of this encounter Visit Diagnoses Not on filedocumented in this encounter Care Teams Fresh Foods Clerk Relationship Specialty Start Date End Date Girma Gonzalez DO [address] [facility] [address] [place] [address] PCP - General Internal Medicine 08/25/24 documented as of this encounter
--- OUTSIDE RECORDS SUMMARY | 2025-06-09 14:18 | XMS_ITS | Encounter Summary ---
Author Organization [facility] Address [address] [place] [address] Care Team Providers Care Atm Servicer Name Role Phone Girma Gonzalez DO Primary Care Provider + Reason for Visit * Reason Comments Med Refill Encounter Details Date Type Department Care Team (Late Contact Info) Description 11/04/2024 Refill [facility] [address] [facility] [address] [place] [address] Rafaela Lucas PA [address] [facility] [address] [place] [address] Social History Tobacco Use Types Packs/Day [...] 11:30 AM EDT Office Visit [facility] [address] [place] [address] Rafaela Lucas PA [address] [facility] [address] [place] [address] documented as of this encounter Visit Diagnoses Not on filedocumented in this encounter Care Teams Atm Servicer Relationship Specialty Start Date End Date Girma Gonzalez DO [address] [place] [address] PCP - General Internal Medicine 08/25/24 documented as of this encounter
[2025-06-09 14:31] LABS: RBC,Urine TNTC #/hpf (0-3); WBC,Urine TNTC #/hpf (0-3)
[2025-06-09 14:32] LABS: Bacteria,Urine 4+ /lpf
[2025-06-09 14:34] LABS: Glucose,Urine (UA) Negative (Negative); Ketones,Urine TRACE (Negative); Leukocyte Esterase,Urine 1+ (Negative); PH,Urine 7.5 (5.0-8.5); Protein,Urine 2+ (Negative); Specific Gravity, Urine 1.020 (1.005-1.030); Urobilinogen,Urine 2.0 EU/dl (0.2)
[2025-06-09 14:35] LABS: Bilirubin,Urine 2+ (Negative); Color,Urine RED (Yellow)
--- NOTE | 2025-06-09 15:46 | PC.NURSE ---
bladder scan 300ml
--- NOTE | 2025-06-09 17:20 | PC.NURSE ---
spoke with [facility] for bed request
[2025-06-09 17:41] LABS: Troponin I < 0.01 ng/ml (0.00-0.034)
--- NOTE | 2025-06-09 18:04 | PC.NURSE ---
arrived by stretcher from ED
--- NOTE | 2025-06-09 19:12 | EXP.HP ---
History of Present Illness *Admission Date: 06/09/25 *Reason for visit:: Hematuria *History of present illness: Lizzie Peres is a 79-year-old female with a medical history significant for type 2 diabetes, hypothyroidism, hypertension, CVA with intermittent urinary continence, degenerative disc disease with back pain presents with 1 day onset of progressive hematuria. Patient states he was having some back pain with chronic degenerative disc disease yesterday, took a Tylenol and followed up with an aspirin 500 mg. Within an hour, she started passing blood clots in her urine. This seemed to have improved into the night, but this morning after a few hours, she started having paramjit bloody urine at which point her nephew brought her to the ER. Patient denies a history of hematuria, but does endorse a history of urinary incontinence with bladder prolapse. Workup in the ED significant for hemoglobin 10.9 around baseline, grossly abnormal UA suggestive of UTI, CT abdomen/pelvis showing distended urinary bladder with mild bladder floor prolapse, right ovarian cyst is favored to be benign, and massive hiatal hernia. She was started on continuous bladder irrigation which improved hematuria. On discontinue CBI, she again started passing blood clots. Vital signs remained stable. Given his presentation, ED provider discussed case with me and decided to admit patient for further evaluation and management. [facility] Disclaimer: The information contained in this section may have been updated after the patient was seen, as this information can be updated by other users. Medical History Hypothyroid Acute hemorrhoid Hx of completed stroke Hx of neck injury Degenerative disc disease Diabetes Hypertension Surgical History H/O hernia repair History of elbow surgery Social History (Updated 06/09/25 @ 18:26 by Radha Gama RN) Smoking Status: Never smoker second hand exposure: No alcohol intake: never counseling provided: none substance use type: denies use current occupational status: retired Travel in the last 8 weeks?: None housing: house current occupational exposures/hazards: No caffeine: Yes Have you lived/traveled outside US in past 30 days?: No Contact w/someone who lives/traveled outside US past 30 days?: No Exposure to someone with infectious disease in past 14 days?: No Do you have a fever (greater than 100.4 F or 38 C)?: No Have you tested positive for COVID-19?: No Exposed to someone with COVID-19 in past 14 days?: No Do you have a sore throat?: No Do you have a cough?: No Do you have any weakness?: No Are you experiencing any nausea/vomitting?: No Do you have any diarrhea?: No Are you experiencing any unusual bleeding?: No Do you have any muscle aches/pain?: No Do you have any abdominal pain?: No Are you experiencing loss of taste or smell?: No Other Medical History Have you received the Flu Vaccine for this season: No Have you received the Pneumonia Vaccine: Yes Review of Systems Constitutional Constitutional: Reports weakness *Neurologic Neurologic: Reports weakness Meds Home Medications and Allergies Home Medications ?Medication ?Instructions ?Recorded ?Confirmed ?Type hydrochlorothiazide 25 mg tablet 25 mg PO DAILY Fluid 12/19/20 06/09/25 History insulin aspart See Protocol SQ AC 07/28/24 06/09/25 History (niacinamide)(U-100) 100 unit/mL(3 mL) subcutaneous pen (Fiasp FlexTouch U-100 Insulin) losartan 100 mg tablet 100 mg PO DAILY #30 tabs 12/04/24 06/09/25 Rx insulin glargine 100 unit/mL (3 See Protocol SQ AC 02/16/25 06/09/25 History mL) subcutaneous pen (Basaglar KwikPen U-100 Insulin) levothyroxine 112 mcg tablet 112 mcg PO DAILY 02/16/25 06/09/25 History levocetirizine 5 mg tablet 5 mg PO DAILY PRN allergies 06/09/25 06/09/25 History New Prescriptions to Start Prescriptions: Allergies Allergy/AdvReac Type Severity Reaction Status Date / Time lisinopril (LISINOPRIL) Allergy Unknown VISION Verified 02/16/25 13:10 DISTURBANCES-DIZZY Penicillins (PENICILLINS) Allergy Unknown REACTED ON Verified 02/16/25 13:10 ALLERGY TESTING cedar tree pollen Allergy Uncoded 02/16/25 13:10 Exam Data for Last 24 hours Vital signs and Labs for Last 24 Hours: Temp Pulse Resp BP Pulse Ox O2 Del Method 98.1 F 68 16 154/63 H 98 Room Air 06/09/25 18:28 06/09/25 18:28 06/09/25 18:28 06/09/25 18:28 06/09/25 18:30 06/09/25 19:00 Laboratory Results - last 24 hr 06/09/25 13:26: WBC 7.1, RBC 3.61 L, Hgb 10.9 L, Hct 32.7 L, MCV 90.6, MCH 30.2, MCHC 33.3, RDW 14.2, Plt Count 230, MPV 9.8, Neut % (Auto) 68.0, Lymph % (Auto) 24.2, [place] % (Auto) 6.1, Eos % (Auto) 0.7, Baso % (Auto) 0.7, Neut # (Auto) 4.8, Lymph # (Auto) 1.7, [place] # (Auto) 0.4, Eos # (Auto) 0.1, Baso # (Auto) 0.1, PT 10.4, INR 0.93, APTT 26.0, Sodium 131 L, Potassium 3.5, Chloride 98, Carbon Dioxide 31 H, Anion Gap 5.5, BUN 28 H, Creatinine 0.80, Estimated Creat Clear 59, Estimated GFR 70, Est GFR ( Amer) 84, Glucose 194 H, Calcium 8.7, Magnesium 1.6, Total Bilirubin 0.4, AST 44 H, ALT 31, Alkaline Phosphatase 60, Troponin I < 0.01, NT-Pro-B Natriuret Pep 187, Total Protein 6.1 L, Albumin 3.8, Globulin 2.3, Albumin/Globulin Ratio 1.7, Lipase 45, Urine Color Red, Urine Appearance Cloudy, Urine pH 7.5, Ur Specific [place] 1.020, Urine Protein 2+ A, Urine Glucose (UA) Negative, Urine Ketones Trace, Urine Blood 3+ A, Urine Nitrate Positive A, Urine Bilirubin 2+ A, Urine Urobilinogen 2.0, Ur Leukocyte Esterase 1+ A, Urine RBC Tntc, Urine WBC Tntc, Ur Squamous Epith Cells None, Urine Bacteria 4+ 06/09/25 16:45: Troponin I < 0.01 I & O for Last 24 hours: Intake & Output 06/06/25 06/07/25 06/08/25 06/09/25 23:59 23:59 23:59 23:59 Intake Total 1050 / 1050 Balance 1050 / 1050 Weight 57.561 kg Constitutional Constitutional: no acute distress *Routine HEENT Exam Head: Present normocephalic Eye: Present EOMI and PERRL ENT: Present mucous membranes moist *Routine Neck Exam Neck: Present supple; Absent lymphadenopathy *Routine Respiratory Exam Respiratory: Present CTA bilaterally *Routine Cardiovascular Exam Cardiovascular: Present RRR *Routine Abdominal Exam Abdominal: Present soft and normoactive bowel sounds; Absent tenderness *Routine Rectal Exam Rectal:: deferred *Routine Genitalia Exam Genitalia:: deferred *Routine Extremities Exam Extremities: Absent cyanosis, clubbing or edema *Routine Skin Exam Skin: Present warm; Absent rash *Routine Neurological Exam Neurological: Present alert and oriented X3 Assessment and Plan *Assessment and plan (1) Acute hemorrhagic cystitis: Status: Acute Category: Medical Code(s): N30.01 - Acute cystitis with hematuria Plan Lizzie Peres is a 79-year-old female with a medical history significant for type 2 diabetes, hypothyroidism, hypertension, CVA with intermittent urinary continence, degenerative disc disease with back pain presents with 1 day onset of progressive hematuria. Patient states he was having some back pain with chronic degenerative disc disease yesterday, took a Tylenol and followed up with an aspirin 500 mg. Within an hour, she started passing blood clots in her urine. This seemed to have improved into the night, but this morning after a few hours, she started having paramjit bloody urine at which point her nephew brought her to the ER. Patient denies a history of hematuria, but does endorse a history of urinary incontinence with bladder prolapse. Workup in the ED significant for hemoglobin 10.9 around baseline, grossly abnormal UA suggestive of UTI, CT abdomen/pelvis showing distended urinary bladder with mild bladder floor prolapse, right ovarian cyst is favored to be benign, and massive hiatal hernia. She was started on continuous bladder irrigation which improved hematuria. On discontinue CBI, she again started passing blood clots. Vital signs remained stable. Given his presentation, ED provider discussed case with me and decided to admit patient for further evaluation and management. #Hemorrhagic cystitis #Bladder floor prolapse #Urinary incontinence ? Patient presents with 1 day onset of progressive hematuria, UA highly suggestive of UTI with gross hematuria. ? Hematuria significantly improving with CBI, currently Ly bag is clear. Continue until 9 PM, then discontinue CBI. If hematuria starts again, restart CBI for another 4 hours. ? Continue IV ceftriaxone 1 g daily. Follow-up blood, urine cultures. ? Vital signs every 4 hours. Hemoglobin stable at 10.9 on admission, around baseline. ? Hold antiplatelets, anticoagulation. ? Plan to refer to urology for further evaluation management. #Type 2 diabetes ? Hemoglobin A1c 7.3% and every 2024. Follow-up repeat A1c. ? LDSSI, ACHS glucose checks. #Hypothyroidism ? Continue home levothyroxine once reconciled. Follow-up TFTs. #Hypertension ? Hold home blood pressure medications in the setting of bleeding. Reconsider tomorrow. #History of CVA ? Hold antiplatelets for now. Seems to have had urinary incontinence since CVA. #Degenerative disc disease in the back ? [place], Tylenol as needed. Full code DVT prophylaxis: IPC's
[2025-06-09 20:41] LABS: POC Glucose,Bedside 366 gm/dL (70-110)
[2025-06-09 21:02] LABS: Troponin I < 0.01 ng/ml (0.00-0.034)
[2025-06-09] MEDS: humaLOG 100 UNITS/ML 10ML VIAL (SSI) SUBCUT (21:04)
[2025-06-09] MEDS: MAGNESIUM SULFATE IN WATER 2 GM/50 ML PIGGYBACK IV (23:28)
--- NOTE | 2025-06-09 23:34 | PC.NURSE ---
At 1115 was called to PT room. C/O cramping in her left leg. Spoke with Giovanna GHOSH she order meds to follow per MAR. Med has been started. ERIC PETERS RN
--- NOTE | 2025-06-09 23:51 | PC.NURSE ---
at 2100 turned the CBI off the out put was clear, will continue to monitor. ERIC PETERS RN
[2025-06-10 04:00] VITALS: BP 118/59; PULSE 87; RESP 17; TEMP 36.8; O2SAT 97; BMI 25.5
[2025-06-10 06:00] LABS: Hematocrit 27.9 % (37.0-47.0); Immature Granulocytes % 0.2 %; Mean Corpuscular HGB Conc 31.5 g/dL (31.8-35.4); Mean Corpuscular Hemoglobin 29.0 pg (27.0-31.2); Mean Corpuscular Volume 92.1 fl (81-99); Nucleated Red Blood Cells % 0 %; Platelet Count 203 K/mm3 (142-424); Red Blood Count 3.03 M/mm3 (4.20-5.40); Red Cell Distribution Width-SD 48.3 fL; White Blood Count 5.6 K/mm3 (4.8-10.8)
[2025-06-10 06:07] LABS: Hemoglobin 9.0 g/dL (12.2-16.2)
[2025-06-10 06:15] LABS: Albumin Level 2.7 g/dl (3.5-5.0); Chloride 104 mmol/L (98-107); Sodium 131 mmol/L (136-145)
[2025-06-10 06:16] LABS: Potassium 3.9 mmoL/L (3.5-5.1)
[2025-06-10 06:18] LABS: Alanine Aminotransferase 22 U/L (12-78); Albumin/Globulin Ratio 1.3 (1.1-1.8); Alkaline Phosphatase 50 U/L (38-126); Anion Gap 2.9 mEq/L (5-15); Aspartate Amino Transferase 34 U/L (14-36); Bilirubin,Total 0.3 mg/dl (0.2-1.3); Blood Urea Nitrogen 24 mg/dl (7-17); Calcium 7.7 mg/dl (8.4-10.2); Carbon Dioxide 28 mmol/L (22.0-30.0); Creatinine Clearance Estimated 44 mL/min (50-200); Creatinine,Serum 0.80 mg/dl (0.52-1.04); Estimated Glomerular Filt Rate 70 ml/min (>60); GFR (African American) 84 ML/MIN (>60); Globulin 2.1 g/dL (1.3-3.2); Glucose 112 mg/dl (74-100); Total Protein,Serum 4.8 g/dl (6.3-8.2)
[2025-06-10 06:19] LABS: Magnesium 2.0 mg/dl (1.6-2.3)
[2025-06-10 07:23] LABS: Free T4 (Free Thyroxine) 1.04 ng/dl (0.78-2.19)
[2025-06-10 07:38] LABS: Thyroid Stimulating Hormone 32.50 uIU/mL (0.465-4.68)
[2025-06-10 07:41] VITALS: BP 111/58; PULSE 98; RESP 16; TEMP 36.8; O2SAT 97
[2025-06-10 08:04] LABS: Hemoglobin A1C 7.9 % (4.0-6.0)
[2025-06-10 08:15] VITALS: O2SAT 97
--- NOTE | 2025-06-10 08:18 | HMH.PHAAMS2 ---
- Antimicrobial Stewardship Review culture & sensitivity review Stewardship interventions: culture & sensitivity review (CURRENTLY RECEIVING ROCEPHIN, WBC WNL, AFEBRILE, URINE CX PENDING.)
[2025-06-10] MEDS: CEFTRIAXONE 1 GM 1 GM in 0.9 % SODIUM CHLORIDE 50 ML IV (08:36)
[2025-06-10] MEDS: humaLOG 100 UNITS/ML 10ML VIAL (SSI) SUBCUT (11:02)
[2025-06-10 11:05] LABS: POC Glucose,Bedside 285 gm/dL (70-110)
[2025-06-10 11:07] VITALS: BP 120/54; BP 127/75; BP 128/67; PULSE 106; PULSE 79; PULSE 94
--- NOTE | 2025-06-10 11:48 | PC.NURSE ---
pt stated she had been a little unsteady on her feet. dr ordered orthostatic blood pressures. laying her BP was 120/54, sitting was 128/67, standing was 127/75. pt did not have any dizziness.
[2025-06-10 13:26] LABS: Hematocrit 30.3 % (37.0-47.0); Hemoglobin 9.9 g/dL (12.2-16.2)
--- NOTE | 2025-06-10 13:32 | EXP.DC.SUM ---
General Admission date:: 06/09/25 HPI HPI HPI: Lizzie Peres is a 79-year-old female with a medical history significant for type 2 diabetes, hypothyroidism, hypertension, CVA with intermittent urinary continence, degenerative disc disease with back pain presents with 1 day onset of progressive hematuria. Patient states he was having some back pain with chronic degenerative disc disease yesterday, took a Tylenol and followed up with an aspirin 500 mg. Within an hour, she started passing blood clots in her urine. This seemed to have improved into the night, but this morning after a few hours, she started having paramjit bloody urine at which point her nephew brought her to the ER. Patient denies a history of hematuria, but does endorse a history of urinary incontinence with bladder prolapse. Workup in the ED significant for hemoglobin 10.9 around baseline, grossly abnormal UA suggestive of UTI, CT abdomen/pelvis showing distended urinary bladder with mild bladder floor prolapse, right ovarian cyst is favored to be benign, and massive hiatal hernia. She was started on continuous bladder irrigation which improved hematuria. On discontinue CBI, she again started passing blood clots. Vital signs remained stable. Given his presentation, ED provider discussed case with me and decided to admit patient for further evaluation and management. Hospital Course Hospital Course Hospital Course: Lizzie Peres is a 79-year-old female with a medical history significant for type 2 diabetes, hypothyroidism, hypertension, CVA with intermittent urinary continence, degenerative disc disease with back pain presents with 1 day onset of progressive hematuria. Patient states he was having some back pain with chronic degenerative disc disease yesterday, took a Tylenol and followed up with an aspirin 500 mg. Within an hour, she started passing blood clots in her urine. This seemed to have improved into the night, but this morning after a few hours, she started having paramjit bloody urine at which point her nephew brought her to the ER. Patient denies a history of hematuria, but does endorse a history of urinary incontinence with bladder prolapse. Workup in the ED significant for hemoglobin 10.9 around baseline, grossly abnormal UA suggestive of UTI, CT abdomen/pelvis showing distended urinary bladder with mild bladder floor prolapse, right ovarian cyst is favored to be benign, and massive hiatal hernia. She was started on continuous bladder irrigation which improved hematuria. On discontinue CBI, she again started passing blood clots. Vital signs remained stable. Given his presentation, ED provider discussed case with me and decided to admit patient for further evaluation and management. #Hemorrhagic cystitis #Bladder floor prolapse #Urinary incontinence ? Patient presents with 1 day onset of progressive hematuria, UA highly suggestive of UTI with gross hematuria. Reportedly, hematuria began after taking aspirin 500 mg at home for back pain. ? Hematuria resolved with CBI, currently Ly bag is clear yellow. No fevers, normal white count, no abdominal pain. ? Hemoglobin did drop slightly from 10.9-9.0 this morning, but repeat hemoglobin this afternoon stable at 9.9. Vital signs stable. No further signs of bleeding. ? Treated hemorrhagic cystitis/UTI with IV ceftriaxone, will transition to cefdinir for 6 more days. ? Discharged with cefdinir 300 mg twice daily for 6 more days. Advised patient to stay clear of NSAIDs/aspirin for now and follow-up with PCP. #Type 2 diabetes ? Hemoglobin A1c 7.9%. Continue home regimen with insulin. #Hypothyroidism ? TSH elevated to 32.5, free T4 normal. ? Patient has been adherent to her levothyroxine on an empty stomach every morning. ? Previously elevated TSH, therefore we will increase levothyroxine from 112 to 137 mcg daily. ? Refer to endocrinology for further evaluation management. #Hypertension ? Resume home losartan. Hold home hydrochlorothiazide as patient has urinary incontinence and blood pressures are normal here. #History of CVA ?Reports a history of CVA but does not take antiplatelets at this time. Follow-up with PCP for further discussion. #Degenerative disc disease in the back ? Continue Tylenol as needed. Total time spent on discharge: 33 minutes on chart review, counseling, documentation, and direct care with patient. Exam Data for Last 24 hours Vital signs and Labs for Last 24 Hours: Temp Pulse Resp BP Pulse Ox O2 Del Method 98.2 F 79 16 120/54 L 97 Room Air 06/10/25 07:41 06/10/25 11:07 06/10/25 07:41 06/10/25 11:07 06/10/25 08:15 06/10/25 13:20 Laboratory Results - last 24 hr 06/09/25 13:26: WBC 7.1, RBC 3.61 L, Hgb 10.9 L, Hct 32.7 L, MCV 90.6, MCH 30.2, MCHC 33.3, RDW 14.2, Plt Count 230, MPV 9.8, Neut % (Auto) 68.0, Lymph % (Auto) 24.2, [place] % (Auto) 6.1, Eos % (Auto) 0.7, Baso % (Auto) 0.7, Neut # (Auto) 4.8, Lymph # (Auto) 1.7, [place] # (Auto) 0.4, Eos # (Auto) 0.1, Baso # (Auto) 0.1, PT 10.4, INR 0.93, APTT 26.0, Sodium 131 L, Potassium 3.5, Chloride 98, Carbon Dioxide 31 H, Anion Gap 5.5, BUN 28 H, Creatinine 0.80, Estimated Creat Clear 59, Estimated GFR 70, Est GFR ( Amer) 84, Glucose 194 H, Calcium 8.7, Magnesium 1.6, Total Bilirubin 0.4, AST 44 H, ALT 31, Alkaline Phosphatase 60, Troponin I < 0.01, NT-Pro-B Natriuret Pep 187, Total Protein 6.1 L, Albumin 3.8, Globulin 2.3, Albumin/Globulin Ratio 1.7, Lipase 45, Urine Color Red, Urine Appearance Cloudy, Urine pH 7.5, Ur Specific Mcgehee 1.020, Urine Protein 2+ A, Urine Glucose (UA) Negative, Urine Ketones Trace, Urine Blood 3+ A, Urine Nitrate Positive A, Urine Bilirubin 2+ A, Urine Urobilinogen 2.0, Ur Leukocyte Esterase 1+ A, Urine RBC Tntc, Urine WBC Tntc, Ur Squamous Epith Cells None, Urine Bacteria 4+ 06/09/25 16:45: Troponin I < 0.01 06/09/25 20:21: Troponin I < 0.01 06/09/25 20:33: POC Glucose 366 H* 06/10/25 05:23: WBC 5.6, RBC 3.03 L, Hgb 9.0 L D, Hct 27.9 L, MCV 92.1, MCH 29.0, MCHC 31.5 L, RDW 14.3, Plt Count 203, MPV 10.0, Neut % (Auto) 52.1, Lymph % (Auto) 36.4, [place] % (Auto) 7.7, Eos % (Auto) 2.9, Baso % (Auto) 0.7, Neut # (Auto) 2.9, Lymph # (Auto) 2.0, [place] # (Auto) 0.4, Eos # (Auto) 0.2, Baso # (Auto) 0.0, Sodium 131 L, Potassium 3.9, Chloride 104, Carbon Dioxide 28, Anion Gap 2.9 L, BUN 24 H, Creatinine 0.80, Estimated Creat Clear 44, Estimated GFR 70, Est GFR ( Amer) 84, Glucose 112 H D, Hemoglobin A1c 7.9 H, Calcium 7.7 L, Magnesium 2.0 D, Total Bilirubin 0.3, AST 34, ALT 22 D, Alkaline Phosphatase 50, Total Protein 4.8 L, Albumin 2.7 L D, Globulin 2.1, Albumin/Globulin Ratio 1.3, TSH 32.50 H, Free T4 1.04 06/10/25 10:57: POC Glucose 285 H 06/10/25 13:14: Hgb 9.9 L, Hct 30.3 L I & O for Last 24 hours: Intake & Output 06/07/25 06/08/25 06/09/25 06/10/25 23:59 23:59 23:59 23:59 Intake Total 1050 / 1340 630 / 630 Output Total 1500 / 1500 650 / 650 Balance -450 / -160 -20 / -20 Weight 57.561 kg 59.058 kg Microbiology Reports for the Last 24 Hours: Microbiology 06/09/25 13:26 Urine,Clean Catch Urine Culture - Final 06/09/25 13:26 Urine,Clean Catch - Final Not Reportable 06/09/25 13:26 Urine,Clean Catch - Final Not Reportable 06/09/25 13:26 Urine,Clean Catch - Final Not Reportable 06/09/25 13:26 Urine,Clean Catch - Final Not Reportable 06/09/25 13:26 Urine,Clean Catch - Final Not Reportable 06/09/25 13:26 Urine,Clean Catch - Final Not Reportable Constitutional Constitutional: no acute distress *Routine HEENT Exam Head: Present normocephalic Eye: Present EOMI and PERRL ENT: Present mucous membranes moist *Routine Neck Exam Neck: Present supple; Absent lymphadenopathy *Routine Respiratory Exam Respiratory: Present CTA bilaterally *Routine Cardiovascular Exam Cardiovascular: Present RRR *Routine Abdominal Exam Abdominal: Present soft and normoactive bowel sounds; Absent tenderness *Routine Extremities Exam Extremities: Absent cyanosis, clubbing or edema *Routine Skin Exam Skin: Present warm; Absent rash *Routine Neurological Exam Neurological: Present alert and oriented X3 Results Data Completed and Pending Labs on day of discharge: Labs from last 24 hours 06/10/25 06/10/25 06/10/25 13:14 10:57 05:23 WBC 5.6 RBC 3.03 L Hgb 9.9 L 9.0 L D Hct 30.3 L 27.9 L MCV 92.1 MCH 29.0 MCHC 31.5 L RDW 14.3 Plt Count 203 MPV 10.0 Neut % (Auto) 52.1 Lymph % (Auto) 36.4 [place] % (Auto) 7.7 Eos % (Auto) 2.9 Baso % (Auto) 0.7 Neut # (Auto) 2.9 Lymph # (Auto) 2.0 [place] # (Auto) 0.4 Eos # (Auto) 0.2 Baso # (Auto) 0.0 PT INR APTT Sodium 131 L Potassium 3.9 Chloride 104 Carbon Dioxide 28 Anion Gap 2.9 L BUN 24 H Creatinine 0.80 Estimated Creat Clear 44 Estimated GFR 70 Est GFR ( Amer) 84 Glucose 112 H D POC Glucose 285 H Hemoglobin A1c 7.9 H Calcium 7.7 L Magnesium 2.0 D Total Bilirubin 0.3 AST 34 ALT 22 D Alkaline Phosphatase 50 Troponin I NT-Pro-B Natriuret Pep Total Protein 4.8 L Albumin 2.7 L D Globulin 2.1 Albumin/Globulin Ratio 1.3 Lipase TSH 32.50 H Free T4 1.04 Urine Color Urine Appearance Urine pH Ur Specific Mcgehee Urine Protein Urine Glucose (UA) Urine Ketones Urine Blood Urine Nitrate Urine Bilirubin Urine Urobilinogen Ur Leukocyte Esterase Urine RBC Urine WBC Ur Squamous Epith Cells Urine Bacteria 06/09/25 06/09/25 06/09/25 20:33 20:21 16:45 WBC RBC Hgb Hct MCV MCH MCHC RDW Plt Count MPV Neut % (Auto) Lymph % (Auto) [place] % (Auto) Eos % (Auto) Baso % (Auto) Neut # (Auto) Lymph # (Auto) [place] # (Auto) Eos # (Auto) Baso # (Auto) PT INR APTT Sodium Potassium Chloride Carbon Dioxide Anion Gap BUN Creatinine Estimated Creat Clear Estimated GFR Est GFR ( Amer) Glucose POC Glucose 366 H* Hemoglobin A1c Calcium Magnesium Total Bilirubin AST ALT Alkaline Phosphatase Troponin I < 0.01 < 0.01 NT-Pro-B Natriuret Pep Total Protein Albumin Globulin Albumin/Globulin Ratio Lipase TSH Free T4 Urine Color Urine Appearance Urine pH Ur Specific Mcgehee Urine Protein Urine Glucose (UA) Urine Ketones Urine Blood Urine Nitrate Urine Bilirubin Urine Urobilinogen Ur Leukocyte Esterase Urine RBC Urine WBC Ur Squamous Epith Cells Urine Bacteria 06/09/25 13:26 WBC 7.1 RBC 3.61 L Hgb 10.9 L Hct 32.7 L MCV 90.6 MCH 30.2 MCHC 33.3 RDW 14.2 Plt Count 230 MPV 9.8 Neut % (Auto) 68.0 Lymph % (Auto) 24.2 [place] % (Auto) 6.1 Eos % (Auto) 0.7 Baso % (Auto) 0.7 Neut # (Auto) 4.8 Lymph # (Auto) 1.7 [place] # (Auto) 0.4 Eos # (Auto) 0.1 Baso # (Auto) 0.1 PT 10.4 INR 0.93 APTT 26.0 Sodium 131 L Potassium 3.5 Chloride 98 Carbon Dioxide 31 H Anion Gap 5.5 BUN 28 H Creatinine 0.80 Estimated Creat Clear 59 Estimated GFR 70 Est GFR ( Amer) 84 Glucose 194 H POC Glucose Hemoglobin A1c Calcium 8.7 Magnesium 1.6 Total Bilirubin 0.4 AST 44 H ALT 31 Alkaline Phosphatase 60 Troponin I < 0.01 NT-Pro-B Natriuret Pep 187 Total Protein 6.1 L Albumin 3.8 Globulin 2.3 Albumin/Globulin Ratio 1.7 Lipase 45 TSH Free T4 Urine Color Red Urine Appearance Cloudy Urine pH 7.5 Ur Specific Mcgehee 1.020 Urine Protein 2+ A Urine Glucose (UA) Negative Urine Ketones Trace Urine Blood 3+ A Urine Nitrate Positive A Urine Bilirubin 2+ A Urine Urobilinogen 2.0 Ur Leukocyte Esterase 1+ A Urine RBC Tntc Urine WBC Tntc Ur Squamous Epith Cells None Urine Bacteria 4+ DS: Diagnosis Discharge Diagnosis (1) Acute hemorrhagic cystitis: Status: Acute Code(s): N30.01 - Acute cystitis with hematuria Meds Home Medications and Allergies Home Medications ?Medication ?Instructions ?Recorded ?Confirmed ?Type hydrochlorothiazide 25 mg tablet 25 mg PO DAILY 12/19/20 06/09/25 History Held on 06/10/25. Instructions: Resume on 07/01/25. Your blood pressures were stable without this medication, recommend holding it as you have urinary incontinence. Discuss with PCP about alternatives if appropriate. insulin aspart See Protocol SQ AC 07/28/24 06/09/25 History (niacinamide)(U-100) 100 unit/mL(3 mL) subcutaneous pen (Fiasp FlexTouch U-100 Insulin) losartan 100 mg tablet 100 mg PO DAILY #30 tabs 12/04/24 06/09/25 Rx insulin glargine 100 unit/mL (3 See Protocol SQ AC 02/16/25 06/09/25 History mL) subcutaneous pen (Basaglar KwikPen U-100 Insulin) levocetirizine 5 mg tablet 5 mg PO DAILY PRN allergies 06/09/25 06/09/25 History cefdinir 300 mg capsule 300 mg PO BID 6 days #12 caps 06/10/25 Rx levothyroxine 137 mcg capsule 137 mcg PO DAILY #30 caps 06/10/25 Rx New Prescriptions to Start Prescriptions: cefdinir Mason Martinez levothyroxine Mason Martinez Allergies Allergy/AdvReac Type Severity Reaction Status Date / Time lisinopril (LISINOPRIL) Allergy Unknown VISION Verified 02/16/25 13:10 DISTURBANCES-DIZZY Penicillins (PENICILLINS) Allergy Unknown REACTED ON Verified 02/16/25 13:10 ALLERGY TESTING cedar tree pollen Allergy Uncoded 02/16/25 13:10 Discharge Plan Disposition Patient Disposition: Home, Self-Care Condition: Fair Follow up Plan Follow up with: Girma Gonzalez DO [Primary Care Provider, Family Practice] - 06/22/25 1:30 pm Zac Driver MD [Staff Physician, Endocrinology] - 2 weeks Prescriptions/Medication Reconciliation: New cefdinir 300 mg capsule 300 mg PO BID 6 Days Qty: 12 0RF levothyroxine 137 mcg capsule 137 mcg PO DAILY Qty: 30 0RF Continued Fiasp FlexTouch U-100 Insulin 100 unit/mL (3 mL) insulin pen See Protocol SQ AC Protocol: Insulin Corrective Low-Dose Regimen Condition: Fingerstick Blood Glucose Dose/Route: Insulin Units Condition: 151-200 mg/dl Dose/Route: 2 unit/SQ Condition: 201-250 mg/dl Dose/Route: 4 units/SQ Condition: 251-300 mg/dl Dose/Route: 6 units/SQ Condition: 301-350 mg/dl Dose/Route: 8 units/SQ Condition: 351-400 mg/dl Dose/Route: 10 units/SQ Condition: 401-450 mg/dl Dose/Route: 12 units/SQ Condition: > 450 mg/dl Dose/Route: CALL MD Protocol Text: Low Intensity Sliding Scale Insulin Patient Comments: INJECT 5-10 UNITS SUBCUTANEOUSLY THREE TIMES DAILY with meals losartan 100 mg tablet 100 mg PO DAILY Qty: 30 2RF insulin glargine [Basaglar KwikPen U-100 Insulin] 100 unit/mL (3 mL) insulin pen See Protocol SQ AC Protocol: Insulin Corrective Low-Dose Regimen Condition: Fingerstick Blood Glucose Dose/Route: Insulin Units Condition: 151-200 mg/dl Dose/Route: 2 unit/SQ Condition: 201-250 mg/dl Dose/Route: 4 units/SQ Condition: 251-300 mg/dl Dose/Route: 6 units/SQ Condition: 301-350 mg/dl Dose/Route: 8 units/SQ Condition: 351-400 mg/dl Dose/Route: 10 units/SQ Condition: 401-450 mg/dl Dose/Route: 12 units/SQ Condition: > 450 mg/dl Dose/Route: CALL MD Protocol Text: Low Intensity Sliding Scale Insulin levocetirizine 5 mg tablet 5 mg PO DAILY PRN (Reason: allergies) Held hydrochlorothiazide 25 mg tablet 25 mg PO DAILY Hold Instructions: Resume on 07/01/25. Your blood pressures were stable without this medication, recommend holding it as you have urinary incontinence. Discuss with PCP about alternatives if appropriate. Discontinued levothyroxine 112 mcg tablet 112 mcg PO DAILY Patient Comments: TAKE ONE TABLET BY MOUTH EVERY MORNING Problem Reconciliation Problems Reviewed?: Yes Patient Discharge Instructions Patient Instructions: DI for Hemorrhagic Cystitis Print Language: Slovak Providers Primary Care Provider: Girma Gonzalez Provider: Mason Martinez Attending Provider: Mason Martinez
[2025-06-10 14:09] LABS: POC Glucose,Bedside 123 gm/dL (70-110)
[2025-06-10 15:28] VITALS: BP 125/67; PULSE 95; RESP 18; TEMP 36.9; O2SAT 96
[2025-06-10 17:02] LABS: POC Glucose,Bedside 255 gm/dL (70-110)
--- NOTE | 2025-06-11 10:05 | SW/DCPLANNER ---
Spoke with patient on the phone. Patient stated that she is doing good but she threw up last night when she took her antibiotic. Patient stated that she is aware of her upcoming appointments. Patient stated that she was able to get her new medicine picked up. Patient stated that she has no concerns or questions at this time. Luis Antonio Ramos
== END 2025-06-10 17:39 | disposition home or self-care (01) ==
LOC: ER 17:18 → 2ND 17:31
PROVIDERS: Nurse Practitioner Family; Admitting Provider Student in an Organized Health Care Education/Training Program; Emergency Provider Student in an Organized Health Care Education/Training Program; PCP Internal Medicine; Visit Provider Student in an Organized Health Care Education/Training Program
DX: N30.01 Acute cystitis with hematuria (principal); N81.9 Female genital prolapse, unspecified; E11.9 Type 2 diabetes mellitus without complications; E03.9 Hypothyroidism, unspecified; I10 Essential (primary) hypertension; I45.4 Nonspecific intraventricular block; M51.360 Other intervertebral disc degeneration, lumbar region with discogenic back pain only; Z86.73 Personal history of transient ischemic attack (TIA), and cerebral infarction without residual deficits; Z88.8 Allergy status to other drugs, medicaments and biological substances; Z88.0 Allergy status to penicillin; Z91.048 Other nonmedicinal substance allergy status; Z79.4 Long term (current) use of insulin; Z79.899 Other long term (current) drug therapy; Z79.890 Hormone replacement therapy
CPT/HCPCS: 36415; 51702; 71045; 74177; 80053; 81001; 82962; 83036; 83690; 83735; 83880; 84439; 84443; 84484; 85014; 85018; 85025; 85610; 85730; 87077; 87086; 93005; 96361; 96365; 96366; 96367; 96375; 99285; G0378; J0696; J3475; J7030; Q9967

== ENCOUNTER 2025-06-22 14:21 | Outpatient (CLI) | payer MEDICARE, SELFPAY ==
[2025-06-22 19:38] LABS: Hematocrit 30.5 % (37.0-47.0); Hemoglobin 9.8 g/dL (12.2-16.2); Immature Granulocytes % 0.3 %; Mean Corpuscular HGB Conc 32.1 g/dL (31.8-35.4); Mean Corpuscular Hemoglobin 29.9 pg (27.0-31.2); Mean Corpuscular Volume 93.0 fl (81-99); Nucleated Red Blood Cells % 0 %; Platelet Count 255 K/mm3 (142-424); Red Blood Count 3.28 M/mm3 (4.20-5.40); Red Cell Distribution Width-SD 46.9 fL; White Blood Count 3.7 K/mm3 (4.8-10.8)
[2025-06-22 19:51] LABS: Anion Gap 6.3 mEq/L (5-15); Blood Urea Nitrogen 28 mg/dl (7-17); Calcium 8.1 mg/dl (8.4-10.2); Carbon Dioxide 28 mmol/L (22.0-30.0); Chloride 101 mmol/L (98-107); Creatinine,Serum 0.80 mg/dl (0.52-1.04); Estimated Glomerular Filt Rate 70 ml/min (>60); GFR (African American) 84 ML/MIN (>60); Glucose 176 mg/dl (74-100); Potassium 4.3 mmoL/L (3.5-5.1); Sodium 131 mmol/L (136-145)
[2025-06-22 20:09] LABS: 25-OH Vitamin D, Total 19.7 ng/mL (30-100)
[2025-06-22 20:41] LABS: Vitamin B12 271 pg/mL (239-931)
[2025-06-22 21:06] LABS: Iron 30 ug/dL (37-170)
[2025-06-22 21:15] LABS: Total Iron Binding Capacity 320 ug/dL (265-497)
[2025-06-22 21:42] LABS: Ferritin 11.4 ng/ml (11.1-264)
--- OUTSIDE RECORDS SUMMARY | 2025-06-23 10:29 | XMS_ITS | Clinical Summary ---
Author Organization [facility] Address [address] [place] [address] Care Team Providers Care Agricultural Adviser Name Role Phone Girma Gonzalez Primary Care Provider + Allergies Active Allergy Reactions Criticality Noted Date Comments Penicillins Other (See Comments) High 05/09/2020 Allergy test Medications esomeprazole (nexIUM) 40 MG capsule Take 1 capsule by mouth Every Morning Before Breakfast. Active Continuous Glucose Sensor (Uniken SystemsStyle Suhail 2 Plus Sensor) [facility] [place] 1 each See Admin Instructions. Change every 15 days 6 each 3 5 Active amLODIPine (NORVASC) 5 MG tablet Take 1 tablet by mouth Daily. Active Insulin Glargine (BASAGLAR KWIKPEN) 100 UNIT/ML injection pen Inject 20 Units under the skin into the appropriate area as directed Daily. 15 mL 5 5 Active levocetirizine (XYZAL) 5 MG tablet Take 1 tablet by mouth Daily. 5 Active Insulin Aspart, w/Niacinamide, (Fiasp FlexTouch) 100 UNIT/ML solution pen-injector Inject 5-10 Units under the skin into the appropriate area as directed 3 (Three) Times a Day With Meals. TO REPLACE NOVOLOG 30 mL 3 5 Active levothyroxine (SYNTHROID, LEVOTHROID) 112 MCG tablet Take 1 tablet by mouth Every Morning. NEW DOSE 90 tablet 1 5 Active hydroCHLOROthia zide 25 MG tablet TAKE ONE TABLET BY MOUTH EVERY DAY 90 tablet 1 5 Active losartan (COZAAR) 100 MG tablet TAKE ONE TABLET BY MOUTH EVERY DAY 90 tablet 5 Active Active Problems Problem Noted Date Diagnosed Date [...] Type Department Care Team Description 05/27/2025 Telephone [facility] [address] [place] [address] Rafaela Lucas PA PAPERWORK REQUEST 05/24/2025 Telephone [facility] [address] [place] [address] Rafaela Lucas PA OFFICE NOTES FROM 05/11/2025 Refill [facility] [address] [place] [address] Rafaela Lucas PA from Last [...] Description 09/16/2025 11:30 AM EDT Office Visit [facility] [address] [facility] [address] [place] [address] Rafaela Lucas PA [address] [facility] [address] [place] [address] Health Maintenance Due Date Last Done Comments [...] Diabetes mellitus type 2, uncontrolled, with complications ([facility]) from Last 3 Months or Most Recently Relevant to Health Maintenance Results * (ABNORMAL) POC Glycosylated Hemoglobin (Hb A1C) (01/12/2025 3:49 PM EDT) Hemoglobin A1C 7.0(A) 4.5 - 5.7 % [facility] Lot Number [id number] [facility] Expiration Date 09/04/2026 [facility] Blood 01/12/2025 3:49 PM EDT us Rafaela RUBIN POINT OF CARE TEST ORDERA BLES Final Result [facility]
[address] [place] [address], * Microalbumin / Creatinine Urine Ratio - Urine, Clean Catch (05/09/2020 11:53 AM EST) Microalbumin/C reatinine Ratio 05/10/2020 12:42 AM EST [facility] Comment:Unable to calculate Creatinine, Urine 26.4 mg/dL 05/10/2020 12:42 AM EST [facility] Microalbumin, Urine <1.2 mg/dL 05/10/2020 12:42 AM EST [facility] Urine Urine specimen collection, clean catch / Unknown Collection / Unknown 05/09/2020 11:53 AM EST 05/09/2020 11:53 AM EST Ana Cristina RUBIN URINE ORDERABLES Final Result [facility]
[address] [place] [address], from Last 3 Months or Most Recently Relevant to Health Maintenance Insurance MEDICARE A & B Member Subscriber Plan / Payer (Ef fective 2012-Present) Name:Lizzie Peres Member ID:[id number] Relation to Subscriber:Self Name:Lizzie Peres Subscriber ID:[id number] Payer ID:[id number] Group ID:Not on file Type:Not on file Address: [address] [employer] Care Teams Agricultural Adviser Relationship Specialty Start Date End Date Girma Gonzalez DO [address] [place] [id number] PCP - General Internal Medicine 08/25/24
--- OUTSIDE RECORDS SUMMARY | 2025-06-23 10:29 | XMS_ITS | Encounter Summary ---
Author Organization [facility] Address [address] [place] [address] Care Team Providers Care Patient Relations Specialist Name Role Phone Girma Gonzalez DO Primary Care Provider + Encounter Details Date Type Department Care Team (Late Contact Info) Description 01/13/2025 Results Follow-Up [facility] [address] [phone] Rafaela Lucas PA [address] [place] [id number] Social History Tobacco Use Types Packs/Day Years [...] Description 09/16/2025 11:30 AM EDT Office Visit [facility] [address] [facility] [address] [place] [address] Rafaela Lucas PA [address] [address] documented as of this encounter Visit Diagnoses Not on filedocumented in this encounter Care Teams Patient Relations Specialist Relationship Specialty Start Date End Date Girma Gonzalez DO [address] [place] [id number] PCP - General Internal Medicine 08/25/24 documented as of this encounter
--- OUTSIDE RECORDS SUMMARY | 2025-06-23 10:29 | XMS_ITS | Encounter Summary ---
Author Organization [facility] Address [address] [place] [address] Care Team Providers Care Gold And Silver Assayer Name Role Phone Girma Gonzalez DO Primary Care Provider + Reason for Visit * Reason Comments Med Refill Encounter Details Date Type Department Care Team (Late st Contact Info) Description 05/11/2025 Refill [facility] [address] [facility] [address] [place] [id number] Rafaela Lucas PA [address] [facility] [address] [place] [address] Social History Tobacco Use Types Packs/Day Years [...] Description 09/16/2025 11:30 AM EDT Office Visit [facility] [address] [facility] [address] [place] [address] Rafaela Lucas PA [address] [id number] documented as of this encounter Visit Diagnoses Not on filedocumented in this encounter Care Teams Gold And Silver Assayer Relationship Specialty Start Date End Date Girma Gonzalez DO [address] [place] [address] PCP - General Internal Medicine 08/25/24 documented as of this encounter
--- OUTSIDE RECORDS SUMMARY | 2025-06-23 10:29 | XMS_ITS | Clinical Summary ---
Author Organization [facility] Address [address] [place] [address] Care Team Providers Care Vending Technician Name Role Phone Eros Cohn MD Primary Care Provider [phone] Family History Medical History Relation Name Comments [...] r (1 - 1-dose 75+ series) 11/23/2022 [id number] Vaccine (1 - 20 25-26 season) 2025 [...] patient's age to complete this topic Insurance [place] [address] MEDICARE Care Teams Vending Technician Relationship Specialty Start Date End Date Eros Cohn MD [facility] [phone] PCP - General 11/04/20
--- OUTSIDE RECORDS SUMMARY | 2025-06-23 10:29 | XMS_ITS | Encounter Summary ---
Author Organization [facility] Address [address] [place] [address] Care Team Providers Care Cutter Grinder Name Role Phone Girma Gonzalez DO Primary Care Provider + Reason for Visit * Reason Onset Date Comments PAPERWORK REQUEST 05/27/2025 Encounter Details Date Type Department Care Team (Late st Contact Info) Description 05/27/2025 Telephone [facility] [address] [address] Rafaela Lucas PA [address] [address] PAPERWORK REQUEST Social History Tobacco Use Types [...] If fax, what is the fax number: [phone] Timeframe paperwork needed: DOROTHY documented in this encounter Plan of Treatment Upcoming Encounters Date Type Department Care Team (Late st Contact Info) Description 09/16/2025 11:30 AM EDT Office Visit [facility] [address] [phone] Rafaela Lucas PA [address] [address] documented as of this encounter Visit Diagnoses Not on filedocumented in this encounter Care Teams Cutter Grinder Relationship Specialty Start Date End Date Girma Gonzalez DO [address] [facility] [address] [place] [address] PCP - General Internal Medicine 08/25/24 documented as of this encounter
--- OUTSIDE RECORDS SUMMARY | 2025-06-23 10:29 | XMS_ITS | Encounter Summary ---
Author Organization [facility] Address [address] [place] [address] Care Team Providers Care Patient Access Name Role Phone Girma Gonzalez DO Primary Care Provider + Reason for Visit * Reason Onset Date Comments OFFICE NOTES FROM 05/24/2025 Encounter Details Date Type Department Care Team (Late st Contact Info) Description 05/24/2025 Telephone [facility] ENDOCRINOLOG[facility] [address] [phone] Rafaela Lucas PA [address] [id number] OFFICE NOTES FROM DECEMBER Social History Tobacco [...] 05/24/2025 3:13 PM EST Caller: LARRY Relationship: [facility] Best call back number: [phone] What form or medical record are you requesting: OFFICE NOTES Who is requesting this form or medical record from you: [facility] [employer] How would you like to receive the form or medical records (pick-up, mail, fax): FAXED If fax, what is the fax number: [phone]* Timeframe paperwork needed: WITHIN A WEEK Additional notes: OFFICE NOTES FROM DECEMBER documented in this encounter Plan of Treatment Upcoming Encounters Date Type Department Care Team (Late st Contact Info) Description 09/16/2025 11:30 AM EDT Office Visit [facility] END[facility] [address] [phone] Rafaela Lucas PA [address] [id number] documented as of this encounter Visit Diagnoses Not on filedocumented in this encounter Care Teams Patient Access Relationship Specialty Start Date End Date Girma Gonzalez DO [address] [place] [address] PCP - General Internal Medicine 08/25/24 documented as of this encounter
--- OUTSIDE RECORDS SUMMARY | 2025-06-23 10:29 | XMS_ITS | Encounter Summary ---
Author Organization [facility] Address [address] [place] [address] Care Team Providers Care Leach Tank Tender Name Role Phone Girma Gonzalez DO Primary Care Provider + Reason for Visit * Reason Comments Med Refill Encounter Details Date Type Department Care Team (Late Contact Info) Description 11/04/2024 Refill [facility] [address] [facility] [address] [place] [address] Rafaela Lucas PA [address] [facility] [address] [place] [id number] Social History Tobacco Use Types Packs/Day [...] Description 09/16/2025 11:30 AM EDT Office Visit [facility]CR[facility] [address] [place] [address] Rafaela Lucas PA [address] [facility] [address] [place] [address] documented as of this encounter Visit Diagnoses Not on filedocumented in this encounter Care Teams Leach Tank Tender Relationship Specialty Start Date End Date Girma Gonzalez DO [address] [place] [address] PCP - General Internal Medicine 08/25/24 documented as of this encounter
[2025-06-26 07:30] LABS: Lyme B. burgdorferi PCR Blood Negative (Negative)
== END 2025-06-22 23:59 | disposition home or self-care (01) ==
LOC: LAB.DROPOF 06-23 10:26
PROVIDERS: PCP Internal Medicine; Visit Provider Nurse Practitioner Family
DX: E55.9 Vitamin D deficiency, unspecified (principal); Z13.21 Encounter for screening for nutritional disorder; E87.1 Hypo-osmolality and hyponatremia; D64.9 Anemia, unspecified; T14.8XXA Other injury of unspecified body region, initial encounter; W57.XXXA Bitten or stung by nonvenomous insect and other nonvenomous arthropods, initial encounter
CPT/HCPCS: 80048; 82306; 82607; 82728; 83540; 83550; 85025; 87476